=== PATIENT | male | born 1970 | race Caucasian/White ===

== ENCOUNTER 2016-05-03 16:08 | Emergency (ER) | payer BC ==
[2016-05-03 16:16] VITALS: BP 131/86; PULSE 93; O2SAT 98
--- NOTE | 2016-05-03 16:47 | ERPHSYRPT ---
- History of Present Illness Time Seen by Provider: 05/03/16 16:37 Source: patient Patient Subjective Stated Complaint: l5 pain Triage Nursing Assessment: STATES HAS HAD L5 BACK PAIN SINCE YESTERDAY. STATES HE IS SUPPOSED TO HAVE A STIMULATOR BUT NOT SCHEDULED YET. 'IF I CANT GET A NARCOTIC FROM THE SAME JERK THAT WOULDNT GIVE ME ONE THE LAST TIME THEN I MIGHT WELL LEAVE' C/O NONRADIATING LOWER BACK PAIN Physician History: The patient is a 45-year-old male with chronic back pain for 2 years. He is under pain management for chronic back pain for which he takes hydrocortisone 20 mg 3 times a day. Since yesterday his low back pain has flared. He states that he wants to come in to have an injection of Dilaudid. He states he is waiting for up approval by his insurance for a stimulator. He denies pain in his legs. He denies problems with urination or defecation. Timing/Duration: yesterday Method of Injury: unknown Quality: aching Back Pain Location: lumbar spine Severity of Pain-Max: severe Severity of Pain-Current: severe Modifying Factors: Improves With: pain medication Associated Symptoms: denies symptoms Previous symptoms: other (chronic) Allergies/Adverse Reactions: naproxen Adverse Reaction (Verified 05/03/16 16:17) upsets stomach Home Medications: Omeprazole 40 mg PO DAILY 12/10/14 [History] Aspirin 81 gm Chew [Baby Aspirin 81 mg Chew] 81 mg PO DAILY 01/06/15 [ History] Lisinopril [Zestril 40 mg] 40 mg PO DAILY 06/15/15 [History] Gabapentin [Neurontin] 300 mg PO Q4H 04/08/16 [History] Oxycodone HCl Cr 20 mg [Oxycontin 20 MG] 20 mg PO TID 04/08/16 [History] Duloxetine HCl [Cymbalta] 60 mg PO DAILY 05/03/16 [History] Hx Tetanus, Diphtheria Vaccination/Date Given: Yes Hx Influenza Vaccination/Date Given: No Hx Pneumococcal Vaccination/Date Given: No Immunizations Up to Date: Yes - Review of Systems Constitutional: No Fever, No Chills Eyes: No Symptoms Ears, Nose, & Throat: No Symptoms Respiratory: No Cough, No Dyspnea Cardiac: No Chest Pain, No Edema, No Syncope Abdominal/Gastrointestinal: No Abdominal Pain, No Nausea, No Vomiting, No Diarrhea Genitourinary Symptoms: No Dysuria Musculoskeletal: Back Pain Skin: No Rash Neurological: No Dizziness, No Focal Weakness, No Sensory Changes Psychological: No Symptoms Endocrine: No Symptoms Hematologic/Lymphatic: No Symptoms Immunological/Allergic: No Symptoms All Other Systems: Reviewed and Negative - Past Medical History Pertinent Past Medical History: Yes Neurological History: No Pertinent History ENT History: No Pertinent History Cardiac History: Hypertension, Other Respiratory History: No Pertinent History Endocrine Medical History: Other Musculoskeletal History: Osteoarthritis GI Medical History: Colitis, GERD, Hepatitis History: No Pertinent History Psycho-Social History: Anxiety, Depression Male Reproductive Disorders: No Pertinent History Other Medical History: Stenosis of the heart, - Past Surgical History Past Surgical History: Yes Neuro Surgical History: No Pertinent History Cardiac: Cardiac Catheterization Respiratory: No Pertinent History Gastrointestinal: Appendectomy Genitourinary: No Pertinent History Musculoskeletal: No Pertinent History Male Surgical History: No Pertinent History Other Surgical History: TONSILS. steroid back injections-. 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 - Social History Smoking Status: Current every day smoker How long have you smoked: 30 Exposure to second hand smoke: Yes Alcohol Use: Socially Drug Use: none Patient Lives Alone: No Significant Family History: no pertinent family hx - Nursing Vital Signs Temperature: 99.3 F Temperature Source: Oral Pulse Rate: 93 Respiratory Rate: 18 Pain Intensity: 8 - Physical Exam General Appearance: moderate distress Eye Exam: PERRL/EOMI, eyes nml inspection Ears, Nose, Throat Exam: normal ENT inspection Neck Exam: normal inspection, non-tender, supple, full range of motion, No meningismus, No midline tenderness Respiratory Exam: normal breath sounds, lungs clear, No respiratory distress Cardiovascular Exam: regular rate/rhythm, normal heart sounds Gastrointestinal Exam: soft, No tenderness, No mass Rectal Exam: not done Back Exam: decreased range of motion Extremity Exam: normal inspection Neurologic Exam: alert, oriented x 3, cooperative, masticator II-XII nml as tested, normal mood/affect, nml station & gait, sensation nml, No motor deficits Skin Exam: normal color, warm, dry, No rash SpO2 Interpretation: normal SpO2: 98 Oxygen Delivery: Room Air - Progress Progress Note: 05/03/16 16:57 After examination of the patient's back I discussed the options of treatment with the patient. Since the patient is already on hydrocodone 20 mg 3 times a day, I recommended to him that he be given a steroid injection, Toradol injection, and ice applied to the area as needed. I said this would be a 4 pronged approach to pain control without using an increasing strength of a narcotic. I left the room to make the orders and the patient walked out and left the hospital. - Departure Time of Disposition: 16:59 Departure Disposition: AMA Clinical Impression: Left against medical advice Condition: Stable Critical Care Time: No
== END 2016-05-03 16:50 | disposition left against medical advice (07) ==
LOC: ED 16:08
DX: M54.5 Low back pain (principal); I10 Essential (primary) hypertension; Z79.891 Long term (current) use of opiate analgesic; Z79.899 Other long term (current) drug therapy
CPT/HCPCS: 99282

== ENCOUNTER 2016-06-24 16:22 | Emergency (ER) | payer BC ==
[2016-06-24] MEDS ORDERED: TYLENOL 325 MG PO ONE (16:46)
[2016-06-24] MEDS ORDERED: Sodium Chloride 0.9% 1000 ML 1,000 ML IV STA (16:46)
[2016-06-24] MEDS ORDERED: PROVENTIL 2.5 MG/3 ML NEB IH ONE ×2 (16:47→17:00)
[2016-06-24] MEDS ORDERED: solu-MEDROL 125 MG IV ONE (16:47)
--- NOTE | 2016-06-24 16:50 | ERPHSYRPT ---
- History of Present Illness Time Seen by Provider: 06/24/16 16:40 Source: patient Patient Subjective Stated Complaint: COUGH Triage Nursing Assessment: STATES HAS HAD FLU AND HE HAS HAD SWEATS AND UPPER RESP S/S WITH FEVER AND NONPRODUCTIVE COUGH FOR 3 DAYS. DENIES N/V/D. NORMAL URINE/BOWELS.POST LT WHEEZES NOTED Physician History: CC: cough Hx: 45 y/o male patient is a smoker but has no hx of lung disease. His was ill with swab positive influenza last week. He then became ill4 days ago. He has cough, fever, chills. Was better yesterday but the fever has returned with cold chills. No V/D. Normal urination. Hx of borderline sugars. No rash or headache. Timing/Duration: day(s) (4) Cough Quality/Degree: moderate Allergies/Adverse Reactions: No Known Drug Allergies Allergy (Unverified 06/24/16 16:32) Home Medications: Omeprazole 40 mg PO DAILY 12/10/14 [History] Aspirin 81 gm Chew [Baby Aspirin 81 mg Chew] 81 mg PO DAILY 01/06/15 [ History] Lisinopril [Zestril 40 mg] 40 mg PO DAILY 06/15/15 [History] Hx Tetanus, Diphtheria Vaccination/Date Given: Yes Hx Influenza Vaccination/Date Given: No Hx Pneumococcal Vaccination/Date Given: No Immunizations Up to Date: Yes - Review of Systems Constitutional: Fever, Chills, Fatigue, Malaise, Weakness Eyes: No Symptoms Ears, Nose, & Throat: No Symptoms Respiratory: Cough, Wheezing, No Dyspnea Cardiac: No Chest Pain Abdominal/Gastrointestinal: No Abdominal Pain, No Nausea, No Vomiting, No Diarrhea Genitourinary Symptoms: No Dysuria Musculoskeletal: Myalgias, No Back Pain Skin: No Rash Neurological: No Headache All Other Systems: Reviewed and Negative - Past Medical History Pertinent Past Medical History: Yes Neurological History: No Pertinent History ENT History: No Pertinent History Cardiac History: Hypertension, Other Respiratory History: No Pertinent History Endocrine Medical History: Other Musculoskeletal History: Osteoarthritis GI Medical History: Colitis, GERD, Hepatitis History: No Pertinent History Psycho-Social History: Anxiety, Depression Male Reproductive Disorders: No Pertinent History Other Medical History: Stenosis of the heart, - Past Surgical History Past Surgical History: Yes Neuro Surgical History: No Pertinent History Cardiac: Cardiac Catheterization Respiratory: No Pertinent History Gastrointestinal: Appendectomy Genitourinary: No Pertinent History Musculoskeletal: No Pertinent History Male Surgical History: No Pertinent History Other Surgical History: TONSILS. steroid back injections-. 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 - Social History Smoking Status: Current every day smoker How long have you smoked: 30 Exposure to second hand smoke: Yes Alcohol Use: Socially Drug Use: none Patient Lives Alone: No Significant Family History: no pertinent family hx - Nursing Vital Signs Nursing Vital Signs: Initial Vital Signs Temperature 103 F Temperature Source Oral Pulse Rate 90 Respiratory Rate 20 Blood Pressure [Right Arm] 127/65 Pain Intensity 0 - Physical Exam General Appearance: alert Eye Exam: PERRL/EOMI Ears, Nose, Throat Exam: normal ENT inspection, moist mucous membranes Neck Exam: normal inspection, non-tender, supple Respiratory Exam: rhonchi, wheezing, No respiratory distress Cardiovascular Exam: regular rate/rhythm, No murmur Gastrointestinal/Abdomen Exam: soft, No tenderness, No distention, No mass, No guarding Male Genitalia Exam: normal genitalia Back Exam: normal inspection, normal range of motion Extremity Exam: normal inspection, normal range of motion Neurologic Exam: alert, oriented x 3, cooperative Skin Exam: diaphoresis SpO2 Interpretation: normal SpO2: 99 Oxygen Delivery: Room Air - Course Nursing assessment & vital signs reviewed: Yes - Radiology Exams cxr X-ray Interpretation: Reviewed by me (increased markings lower lungs without focal consolidation) Ordered Tests: Active Orders 24 hr Category Date Time Status Clean Catch Urine Specimen STAT Care 06/24/16 16:46 Active IV Insertion STAT Care 06/24/16 16:46 Active CHEST 2 VIEWS (PA AND LAT) Stat Exams 06/24/16 16:46 Taken CBC W DIFF Stat Lab 06/24/16 17:06 Completed CMP Stat Lab 06/24/16 17:06 Completed Lactic Acid Urgent Lab 06/24/16 16:47 Ordered Manual Differential NC Stat Lab 06/24/16 17:06 Completed UA Stat Lab 06/24/16 17:06 Completed Respiratory Nebulizer STAT RT 06/24/16 16:47 Completed Medication Summary Generic Name Dose Route Start Last Admin Trade Name Freq PRN Reason Stop Dose Admin Sodium Chloride 1,000 mls @ 999 mls/hr 06/24/16 16:46 06/24/16 16:57 Sodium Chloride 0.9% 1000 Ml IV 06/24/16 17:46 999 mls/hr .Q1H1M STA Administration Discontinued Medications Generic Name Dose Route Start Last Admin Trade Name Judd PRN Reason Stop Dose Admin Acetaminophen 650 mg 06/24/16 16:46 06/24/16 16:56 Tylenol 325 Mg PO 06/24/16 16:47 650 mg STAT ONE Administration Acetaminophen Confirm 06/24/16 16:53 Tylenol 325 Mg Administered 06/24/16 16:54 Dose 650 mg .ROUTE .STK-MED ONE Albuterol Sulfate 2.5 mg 06/24/16 16:47 06/24/16 17:10 Proventil 2.5 Mg/3 Ml Neb IH 06/24/16 16:48 2.5 mg STAT ONE Administration Albuterol Sulfate Confirm 06/24/16 17:00 Proventil 2.5 Mg/3 Ml Neb Administered 06/24/16 17:01 Dose 2.5 mg IH .STK-MED ONE Sodium Chloride Confirm 06/24/16 16:53 Sodium Chloride 0.9% 1000 Ml Administered 06/24/16 16:54 Dose 1,000 mls @ ud .ROUTE .STK-MED ONE Methylprednisolone Sodium Succinate 125 mg 06/24/16 16:47 06/24/16 16:56 Solu-Medrol 125 Mg IV 06/24/16 16:48 125 mg STAT ONE Administration Methylprednisolone Sodium Succinate Confirm 06/24/16 16:53 Solu-Medrol 125 Mg Administered 06/24/16 16:54 Dose 125 mg .ROUTE .STK-MED ONE Lab/Rad Data: Laboratory Result Diagrams 06/24/16 17:06 06/24/16 17:06 Laboratory Results 06/24/16 06/24/16 06/24/16 Range/Units 17:06 17:06 17:06 WBC 11.9 H (4.0-10.5) K/mm3 RBC 4.68 (4.1-5.6) M/mm3 Hgb 14.4 (12.5-18.0) gm/dl Hct 42.9 (42-50) % MCV 91.7 (78-100) fl MCH 30.8 (26-32) pg MCHC 33.6 (32-36) g/dl RDW 12.8 (11.5-14.0) % Plt Count 276 (150-450) K/mm3 MPV 10.8 H (6-9.5) fl Segmented Neutrophils 60 (36.-66.) % Band Neutrophils 2 (0.0-2.0) % Lymphocytes (Manual) 31 (24-44) % Monocytes (Manual) 3 (0.0-12.0) % Basophils (Manual) 1 (0.0-1.0) % Differential Comment NORMAL Atypical Lymphocytes 3 % Platelet Estimate NORMAL (NORMAL) Sodium 140 (136-145) mEq/L Potassium 4.1 (3.5-5.1) mEq/L Chloride 101 (98-107) mEq/L Carbon Dioxide 27.4 (21-32) mEq/L Anion Gap 15.2 H (5-15) MEQ/L BUN 14 (9-20) mg/dL Creatinine 0.94 (0.55-1.30) mg/dl Estimated GFR > 60 ML/MIN Glucose 111 H (70-110) MG/DL Calcium 9.8 (8.5-10.1) mg/dL Total Bilirubin 0.3 (0.2-1.0) mg/dL AST 17 (15-37) U/L ALT 10 L (12-78) U/L Alkaline Phosphatase 82 (46-116) U/L Serum Total Protein 8.5 H (6.4-8.2) gm/dL Albumin 4.0 (3.4-5.0) g/dL Ur Collection Type CLEAN CATCH Urine Color YELLOW (YELLOW) Urine Appearance CLEAR (CLEAR) Urine pH 5.5 (5-6) Ur Specific [place] 1.025 (1.005-1.025) Urine Protein NEGATIVE (Negative) Urine Glucose (UA) NEGATIVE (NEGATIVE) mg/dL Urine Ketones TRACE (NEGATIVE) Urine Nitrite NEGATIVE (NEGATIVE) Urine Bilirubin SMALL (NEGATIVE) Urine Urobilinogen 0.2 (0-1) mg/dL Urine WBC (Auto) NEGATIVE (NEGATIVE) Urine RBC (Auto) NEGATIVE (0-5) Vic/ul Specimen Received 06/24/16 1700 - Progress Progress Note: 06/24/16 17:36 Neb and steroids given. Advised stop smoking. He has flu exposure. Rx given. Counseled pt/family regarding: lab results, diagnosis, need for follow-up - Departure Time of Disposition: 17:37 Departure Disposition: Home Clinical Impression: Acute asthmatic bronchitis, Smoker, Influenza Condition: Stable Critical Care Time: No Referrals: HANNA CAR MD [Primary Care Provider] - Instructions: Bronchitis, Influenza -- Adult Additional Instructions: Stop smoking. Push oral fluids. Rx doxycycline. Rx albuterol MDI. Rx prednisone. Tylenol if needed for fever or discomfort. Prescriptions: Albuterol Sulfate [Albuterol Sulfate Hfa] 2 puff IH Q4-6HPRN PRN #1 [id number] PRN Reason: cough or wheeze Doxycycline Hyclate [Vibramycin] 1 cap PO BID #20 capsule Prednisone 20 mg [Deltasone 20 mg] 2 tab PO DAILY #10 tablet
[2016-06-24] MEDS ORDERED: TYLENOL 325 MG ONE (16:53)
[2016-06-24] MEDS ORDERED: Sodium Chloride 0.9% 1000 ML 1,000 ML ONE (16:53)
[2016-06-24] MEDS ORDERED: solu-MEDROL 125 MG ONE (16:53)
[2016-06-24 17:09] LABS: Mean Cell Volume 91.7 fl (78-100); Mean Corpuscular Hemoglobin 30.8 pg (26-32); Mean Platelet Volume 10.8 fl (6-9.5); Platelet Count 276 K/mm3 (150-450); Red Blood Count 4.68 M/mm3 (4.1-5.6); Red Cell Distribution Width 12.8 % (11.5-14.0); White Blood Count 11.9 K/mm3 (4.0-10.5)
[2016-06-24 17:13] LABS: Collection Type CLEAN CATCH; Ph 5.5 (5-6)
[2016-06-24 17:14] LABS: COMPLETE URINE MICROSCOPIC? NO
[2016-06-24 17:28] LABS: ALKALINE PHOSPHATASE 82 U/L (46-116); ANION GAP 15.2 MEQ/L (5-15); BILIRUBIN,TOTAL 0.3 mg/dL (0.2-1.0); BLOOD UREA NITROGEN 14 mg/dL (9-20); CHLORIDE 101 mEq/L (98-107); Carbon Dioxide 27.4 mEq/L (21-32); Glucose 111 MG/DL (70-110); Potassium 4.1 mEq/L (3.5-5.1); SGOT/AST 17 U/L (15-37); SGPT/ALT 10 U/L (12-78); SODIUM 140 mEq/L (136-145); Total Protein 8.5 gm/dL (6.4-8.2)
[2016-06-24 17:32] LABS: ATYPICAL LYMPHS 3 %; BAND 2 % (0.0-2.0); Basophil 1 % (0.0-1.0); Total Cells Counted 100
[2016-06-24 17:33] LABS: Platelet Estimate NORMAL (NORMAL)
[2016-06-24 17:39] VITALS: O2SAT 99
[2016-06-24] MEDS ORDERED: Vibramycin 100 MG PO ONE (17:42)
[2016-06-24] MEDS ORDERED: Vibramycin 100 MG ONE (17:46)
[2016-06-24] MEDS ORDERED: Ventolin Hfa MDI IH ONE (17:51)
[2016-06-24] MEDS ORDERED: Ventolin Hfa MDI IH PRN (17:51)
[2016-06-24 18:42] VITALS: BP 129/73; PULSE 82
--- NOTE | 2016-06-24 22:09 | XRAY ---
Indication: Fever and cough. Comparison: March 20, 2016. PA/lateral chest again hyperinflated with scattered calcified granulomas. Query small focus of inferior lingular infiltrate/atelectasis. Remaining heart, lungs, and bony thorax unremarkable.
== END 2016-06-24 18:45 | disposition home or self-care (01) ==
LOC: ED 16:22
DX: J45.909 Unspecified asthma, uncomplicated (principal); F17.200 Nicotine dependence, unspecified, uncomplicated; J11.1 Influenza due to unidentified influenza virus with other respiratory manifestations; R05 Cough; R50.9 Fever, unspecified; I10 Essential (primary) hypertension
CPT/HCPCS: 36000; 36415; 71020; 80053; 81002; 83605; 85025; 94640; 96360; 96374; 99284; J2930; A9270-GY

== ENCOUNTER 2016-06-30 16:00 | Emergency (ER) | payer BC ==
[2016-06-30] MEDS ORDERED: Sodium Chloride 0.9% 1000 ML 1,000 ML ONE (16:41)
[2016-06-30] MEDS ORDERED: Sodium Chloride 0.9% 1000 ML 1,000 ML IV SCH (16:45)
[2016-06-30 16:54] LABS: Mean Cell Volume 91.3 fl (78-100); Platelet Count 397 K/mm3 (150-450); Red Blood Count 4.36 M/mm3 (4.1-5.6); Red Cell Distribution Width 12.8 % (11.5-14.0); White Blood Count 13.5 K/mm3 (4.0-10.5)
--- NOTE | 2016-06-30 16:57 | ERPHSYRPT ---
- History of Present Illness Time Seen by Provider: 06/30/16 16:20 Source: patient Exam Limitations: clinical condition Patient Subjective Stated Complaint: had spinal stimulator put in yesterday. states today surgery site is leaking. Triage Nursing Assessment: ambulated to room without difficulty. skin w/d, color normal, resp easy. [place] without difficulty. denies any h/a, numbness. has clear drainage noted under opsite dressing. air also noted under dressing. Physician History: PATIENT WITH HISTORY OF DEGENERATIVE DISC DISEASE HAD A SPINAL CORD STIMULATOR INSERTION YESTERDAY NOW COMPLAINS OF CLEAR FLUID LEAKING INTO CLEAR BANDAGE. PATIENT DENIES FEVER, HEADACHE OR INCREASING BACK PAIN. Timing/Duration: yesterday Severity: mild Associated Symptoms: other (DENIES HEADACHE, NECK PAIN) Allergies/Adverse Reactions: No Known Drug Allergies Allergy (Verified 06/30/16 16:32) Home Medications: Omeprazole 40 mg PO DAILY 12/10/14 [History] Aspirin 81 gm Chew [Baby Aspirin 81 mg Chew] 81 mg PO DAILY 01/06/15 [ History] Lisinopril [Zestril 40 mg] 40 mg PO DAILY 06/15/15 [History] Hx Tetanus, Diphtheria Vaccination/Date Given: Yes (2015) Hx Influenza Vaccination/Date Given: No Hx Pneumococcal Vaccination/Date Given: No - Review of Systems Constitutional: No Fever, No Chills Eyes: No Symptoms Ears, Nose, & Throat: No Symptoms Respiratory: No Symptoms, No Cough, No Dyspnea Cardiac: No Symptoms, No Chest Pain, No Edema, No Syncope Abdominal/Gastrointestinal: No Abdominal Pain, No Nausea, No Vomiting, No Diarrhea Genitourinary Symptoms: No Symptoms, No Dysuria Musculoskeletal: Other (FLUID DRAINING FROM SPINAL CORD STIMULATOR SITE), No Back Pain, No Neck Pain Skin: No Rash Neurological: No Dizziness, No Focal Weakness, No Sensory Changes Psychological: No Symptoms Endocrine: No Symptoms All Other Systems: Reviewed and Negative - Past Medical History Pertinent Past Medical History: Yes Neurological History: No Pertinent History ENT History: No Pertinent History Cardiac History: Hypertension, Other Respiratory History: No Pertinent History Endocrine Medical History: Other Musculoskeletal History: Osteoarthritis GI Medical History: Colitis, GERD, Hepatitis History: No Pertinent History Psycho-Social History: Anxiety, Depression Male Reproductive Disorders: No Pertinent History Other Medical History: Stenosis of the heart, - Past Surgical History Past Surgical History: Yes Neuro Surgical History: No Pertinent History Cardiac: Cardiac Catheterization Respiratory: No Pertinent History Gastrointestinal: Appendectomy Genitourinary: No Pertinent History Musculoskeletal: No Pertinent History Male Surgical History: No Pertinent History Other Surgical History: TONSILS. steroid back injections-. 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 - Social History Smoking Status: Current every day smoker How long have you smoked: 30 Exposure to second hand smoke: Yes Alcohol Use: Socially Drug Use: none Patient Lives Alone: No Significant Family History: no pertinent family hx - Nursing Vital Signs Nursing Vital Signs: Initial Vital Signs Temperature 98.9 F Temperature Source Oral Pulse Rate 64 Respiratory Rate 20 Blood Pressure [Right Arm] 129/57 Pain Intensity 0 - Physical Exam General Appearance: no apparent distress, alert Eye Exam: PERRL/EOMI, eyes nml inspection Ears, Nose, Throat Exam: normal ENT inspection, TMs normal, pharynx normal, moist mucous membranes Neck Exam: normal inspection, non-tender, supple, full range of motion Respiratory Exam: normal breath sounds, lungs clear, No respiratory distress Cardiovascular Exam: regular rate/rhythm, normal heart sounds, normal peripheral pulses Gastrointestinal/Abdomen Exam: soft, normal bowel sounds, No tenderness, No mass Back Exam: normal range of motion, other (ADHESIVE TRANSPARENT DRESSING OVER T- 8 TO L-5, WITH CLEAR FLUID AT THE L1TO L5 AREA, NO PURULENT DRAINAGE NOTED), No CVA tenderness, No vertebral tenderness Extremity Exam: normal inspection, normal range of motion, pelvis stable Neurologic Exam: alert, oriented x 3, cooperative, normal mood/affect, nml cerebellar function, nml station & gait, sensation nml, No motor deficits Skin Exam: normal color, warm, dry, No rash Lymphatic Exam: No adenopathy SpO2 Interpretation: normal SpO2: 96 Oxygen Delivery: Room Air Ordered Tests: Active Orders 24 hr Category Date Time Status Binder,Apply ONCE Care 06/30/16 18:25 Ordered IV Insertion STAT Care 06/30/16 16:31 Active BLOOD CULTURE Stat Lab 06/30/16 16:52 Received CBC W DIFF Stat Lab 06/30/16 16:35 Completed CULTURE,WOUND Stat Lab 06/30/16 16:35 Received Manual Differential NC Stat Lab 06/30/16 16:35 Completed Medication Summary Generic Name Dose Route Start Last Admin Trade Name Freq PRN Reason Stop Dose Admin Sodium Chloride 1,000 mls @ 100 mls/hr 06/30/16 16:45 06/30/16 16:46 Sodium Chloride 0.9% 1000 Ml IV 07/30/16 16:44 100 mls/hr .Q10H MUKUL Administration Discontinued Medications Generic Name Dose Route Start Last Admin Trade Name Judd PRN Reason Stop Dose Admin Sodium Chloride Confirm 06/30/16 16:41 Sodium Chloride 0.9% 1000 Ml Administered 06/30/16 16:42 Dose 1,000 mls @ ud .ROUTE .STK-MED ONE Lab/Rad Data: Laboratory Result Diagrams 06/30/16 16:35 Laboratory Results 06/30/16 Range/Units 16:35 WBC 13.5 H (4.0-10.5) K/mm3 RBC 4.36 (4.1-5.6) M/mm3 Hgb 13.5 (12.5-18.0) gm/dl Hct 39.8 L (42-50) % MCV 91.3 (78-100) fl MCH 31.0 (26-32) pg MCHC 33.9 (32-36) g/dl RDW 12.8 (11.5-14.0) % Plt Count 397 (150-450) K/mm3 MPV 10.0 H (6-9.5) fl Segmented Neutrophils 55 (36.-66.) % Band Neutrophils 4 H (0.0-2.0) % Lymphocytes (Manual) 33 (24-44) % Monocytes (Manual) 3 (0.0-12.0) % Eosinophils (Manual) 4 H (0.00-3.0) % Metamyelocytes 1 % Differential Comment ABNORMAL Platelet Estimate NORMAL (NORMAL) Anisocytosis 1+ - Progress Progress Note: 06/30/16 18:[address] IVEY IN TO EVALUATE PATIENT WITH RECOMMENDATION OF ABDOMINAL BINDER , PATIENT TAKING ANTIBIOTICS KEFLEX Discussed with Dr.: Other (DISCUSSED WITH DR JEAN CORCORAN PAIN SPECIALIST AT 1645 , WHO WILL COME TO THE EMERGNCY ROOM FOR EVAUATION OF PATIENT) Counseled pt/family regarding: lab results, diagnosis, need for follow-up - Departure Time of Disposition: 18:35 Departure Disposition: Home Clinical Impression: SPINAL CORD STIMULATOR SITE DRAINAGE Condition: Stable Critical Care Time: No Additional Instructions: MAINTAIN ABDOMINAL BINDER UNTIL EVALUATED BY DR IVEY IN OFFICE IN 3 DAYS. CONTINUE ALL CURRENT MEDICATIONS.
[2016-06-30 17:19] LABS: BAND 4 % (0.0-2.0); Eosinophil 4 % (0.00-3.0); Metamyelocyte 1 %; Total Cells Counted 100
[2016-06-30 17:22] LABS: ANISOCYTOSIS 1+; Platelet Estimate NORMAL (NORMAL)
[2016-06-30 18:39] VITALS: BP 124/68; PULSE 60; O2SAT 97
== END 2016-06-30 18:38 | disposition home or self-care (01) ==
LOC: ED 16:00
DX: T81.31XA Disruption of external operation (surgical) wound, not elsewhere classified, initial encounter (principal)
CPT/HCPCS: 36000; 36415; 85025; 87040; 87070; 96360; 99284; L0625

== ENCOUNTER 2016-10-16 22:26 | Emergency (ER) | payer BC ==
--- NOTE | 2016-10-16 23:19 | ERPHSYRPT ---
- History of Present Illness Time Seen by Provider: 10/16/16 23:10 Source: patient Exam Limitations: no limitations Patient Subjective Stated Complaint: Pt sts right lower jaw pain for a couple of days worsening in nature. Sts he googled it and thinks that it is a swollen gland. Triage Nursing Assessment: Pt alert, oriented, answers all questions appropriately. Skin p/w/d, resps non-labored. Pt ambulatory to tx room, steady gait noted. Swelling noted rt lower jaw along jaw line. Inside of mouth the oral and buccal mucosa appears reddened and swollen. Physician History: FOR THE PAST 3 DAYS PT HAS HAD A RIGHT JAW LUMP WHICH IS TENDER. PT ALSO HAS HAD A HEADACHE 2 DAYS AGO ONLY AND DIARRHEA FOR THE PAST 2 DAYS. PT DENIES FEVER , CHEST PAIN, VOMITING. Allergies/Adverse Reactions: No Known Drug Allergies Allergy (Verified 10/16/16 22:35) Home Medications: Omeprazole 40 mg PO DAILY 12/10/14 [History] Aspirin 81 gm Chew [Baby Aspirin 81 mg Chew] 81 mg PO DAILY 01/06/15 [ History] Lisinopril [Zestril 40 mg] 40 mg PO DAILY 06/15/15 [History] Hydrocodone Bit/Acetaminophen [Hydrocodon-Acetaminophn 10-325] 1 each PO BID 06/30 [History] Hx Tetanus, Diphtheria Vaccination/Date Given: Yes (less than 5 years) Hx Influenza Vaccination/Date Given: No Hx Pneumococcal Vaccination/Date Given: No Immunizations Up to Date: No - Review of Systems Constitutional: No Fever Ears, Nose, & Throat: Other (JAW LUMP) Cardiac: No Chest Pain Abdominal/Gastrointestinal: Diarrhea, No Vomiting Neurological: Headache All Other Systems: Reviewed and Negative - Past Medical History Pertinent Past Medical History: Yes Neurological History: No Pertinent History ENT History: No Pertinent History Cardiac History: Hypertension, Other Respiratory History: No Pertinent History Endocrine Medical History: Other Musculoskeletal History: Osteoarthritis GI Medical History: Colitis, GERD, Hepatitis History: No Pertinent History Psycho-Social History: Anxiety, Depression Male Reproductive Disorders: No Pertinent History Other Medical History: Stenosis of the heart, - Past Surgical History Past Surgical History: Yes Neuro Surgical History: No Pertinent History Cardiac: Cardiac Catheterization Respiratory: No Pertinent History Gastrointestinal: Appendectomy Genitourinary: No Pertinent History Musculoskeletal: No Pertinent History Male Surgical History: No Pertinent History Other Surgical History: TONSILS. steroid back injections-. 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 - Social History Smoking Status: Current every day smoker How long have you smoked: 30 years Exposure to second hand smoke: No Alcohol Use: Socially Drug Use: none Patient Lives Alone: No Significant Family History: no pertinent family hx - Nursing Vital Signs Nursing Vital Signs: Initial Vital Signs Temperature 99.2 F Temperature Source Oral Pulse Rate 82 Respiratory Rate 16 Blood Pressure [Right Arm] 165/103 Pain Intensity 2 - Physical Exam General Appearance: alert Eye Exam: PERRL/EOMI Ears, Nose, Throat Exam: pharynx normal, moist mucous membranes, other (TENDER NON-MOVEABLE 3 CM NODULE OVER THE MID RIGHT JAW. ) Neck Exam: full range of motion Respiratory Exam: normal breath sounds Cardiovascular Exam: normal heart sounds Gastrointestinal/Abdomen Exam: soft, normal bowel sounds Back Exam: normal range of motion Extremity Exam: normal inspection, No pedal edema Neurologic Exam: alert, cooperative Skin Exam: warm, dry SpO2 Interpretation: normal SpO2: 99 Oxygen Delivery: Room Air - Course Nursing assessment & vital signs reviewed: Yes - CT Exams Maxillofacial Bones CT Interpretation: Tele-radiologist Report (FINDINGS SUGGEST RIGHT SUBMANDIBULAR LYMPHADENITIS.) Ordered Tests: Active Orders 24 hr Category Date Time Status FACIAL BONES WO CONTRAST [CT] Stat Exams 10/16/16 23:18 Taken - Departure Time of Disposition: 00:19 Departure Disposition: Home Clinical Impression: SUBMANDIBULAR LYMPHADENITIS Condition: Stable Critical Care Time: No Instructions: Lymphadenopathy Additional Instructions: FOLLOW UP WITH PRIVATE DOCTOR TOMORROW. Prescriptions: Cephalexin Monohydrate [Keflex] 500 mg PO TID #30 capsule
[2016-10-17] MEDS ORDERED: Rocephin 1000 MG INJ IM ONE (00:19)
[2016-10-17] MEDS ORDERED: Rocephin 1000 MG INJ ONE (00:21)
[2016-10-17] MEDS ORDERED: XYLOCAINE 1% HCL 20 ML MDV ONE (00:21)
[2016-10-17 00:48] VITALS: BP 164/108; PULSE 80; O2SAT 98
--- NOTE | 2016-10-17 08:55 | XRAY ---
Indication: Right mandible mass/tenderness/pain. Multiple contiguous axial images obtained through the facial bones without contrast. Comparison: None There are multiple bilateral dental amalgams producing beam artifact limiting these levels. There are a few prominent right submandibular lymph nodes with stranding favoring lymphadenitis. Largest measures 1.3 x 0.7 cm. Smaller scattered cervical nodes seen bilaterally, none pathologically enlarged. Parotid and submandibular glands are asymmetric. Heavy carotid arteriosclerotic calcifications, right greater than left. No acute fracture or suspicious bony lesions. Orbits including roof, madrigal, and floors intact. Visualized cervical spine intact. Remaining visualized noncontrasted soft tissues including base of the brain unremarkable. Visualized paranasal sinuses and mastoid air cells are clear. Impression: 1. Right submandibular lymphadenitis. 2. Heavy carotid calcifications bilaterally. Outpatient ultrasound may yield further information if clinically warranted. Comment: Preliminary interpretation was made by [facility]. No discrepancy. CTDI 59.47
== END 2016-10-17 00:48 | disposition home or self-care (01) ==
LOC: ED 22:26
DX: I88.8 Other nonspecific lymphadenitis (principal); R19.7 Diarrhea, unspecified; R51 Headache
CPT/HCPCS: 70486; 96372; 99284; J0696

== ENCOUNTER 2016-12-19 10:19 | Emergency (ER) | payer BC ==
[2016-12-19] MEDS ORDERED: TORAdol 30 mg Injection IM ONE (10:37)
[2016-12-19] MEDS ORDERED: TORAdol 30 mg Injection ONE (10:44)
--- NOTE | 2016-12-19 10:46 | ERPHSYRPT ---
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 He had a spinal stimulator placed by Dr Patel 3 weeks ago and has had no relief in his symptoms since that time. He was seen and has been taking Ruston 10/325 bid, he admits to running out on Sunday due to taking an extra pill on a couple of days after the stimulator was placed due to increased pain. He has no fever, chills. no numbness, tingling, weakness or radiation of pain down the legs. 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 Allergies/Adverse Reactions: No Known Drug Allergies Allergy (Verified 12/19/16 10:29) Home Medications: Omeprazole 40 mg PO DAILY 12/10/14 [History] Aspirin 81 gm Chew [Baby Aspirin 81 mg Chew] 81 mg PO DAILY 01/06/15 [ History] Lisinopril [Zestril 40 mg] 40 mg PO DAILY 06/15/15 [History] Hydrocodone Bit/Acetaminophen [Hydrocodon-Acetaminophn 10-325] 1 each PO BID 06/30 [History] Hx Tetanus, Diphtheria Vaccination/Date Given: Yes Hx Influenza Vaccination/Date Given: No Hx Pneumococcal Vaccination/Date Given: No Immunizations Up to Date: Yes - Review of Systems Constitutional: No Fever, No Chills Respiratory: No Cough, No Dyspnea Cardiac: No Chest Pain, No Edema, No Syncope Abdominal/Gastrointestinal: No Abdominal Pain, No Nausea, No Vomiting, No Diarrhea Musculoskeletal: Back Pain Skin: No Rash Neurological: No Dizziness, No Focal Weakness, No Sensory Changes All Other Systems: Reviewed and Negative - Past Medical History Pertinent Past Medical History: Yes Neurological History: No Pertinent History ENT History: No Pertinent History Cardiac History: Hypertension, Other Respiratory History: No Pertinent History Endocrine Medical History: Other Musculoskeletal History: Osteoarthritis GI Medical History: Colitis, GERD, Hepatitis History: No Pertinent History Psycho-Social History: Anxiety, Depression Male Reproductive Disorders: No Pertinent History Other Medical History: Stenosis of the heart, - Past Surgical History Past Surgical History: Yes Neuro Surgical History: No Pertinent History Cardiac: Cardiac Catheterization Respiratory: No Pertinent History Gastrointestinal: Appendectomy Genitourinary: No Pertinent History Musculoskeletal: Orthopedic Surgery Male Surgical History: No Pertinent History Other Surgical History: TONSILS. steroid back injections-. 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 - Social History Smoking Status: Current every day smoker How long have you smoked: 30 years Exposure to second hand smoke: No Alcohol Use: Socially Drug Use: none Patient Lives Alone: No Significant Family History: no pertinent family hx - Nursing Vital Signs Nursing Vital Signs: Initial Vital Signs Temperature 98.9 F 12/19/16 10:25 Pulse Rate 100 H 12/19/16 10:25 Respiratory Rate 18 12/19/16 10:25 Blood Pressure 140/84 12/19/16 10:25 O2 Sat by Pulse Oximetry 99 12/19/16 10:25 Pain Scale Pain Intensity 8 - Physical Exam General Appearance: no apparent distress, alert Respiratory Exam: normal breath sounds, lungs clear, No respiratory distress Cardiovascular Exam: regular rate/rhythm, normal heart sounds Gastrointestinal Exam: soft, No tenderness, No mass Back Exam: normal inspection, decreased range of motion, other (well healed surgical scars horizonatal x 2 on right lower back), No normal range of motion, No muscle spasm, No point tenderness Extremity Exam: normal inspection, normal range of motion, No calf tenderness, No pedal edema Neurologic Exam: alert, oriented x 3, cooperative, nutrition instructor II-XII nml as tested, normal mood/affect, nml station & gait, sensation nml, No motor deficits Skin Exam: normal color, warm, dry, No rash SpO2 Interpretation: normal SpO2: 99 Oxygen Delivery: Room Air Ordered Tests: Medication Summary Discontinued Medications Generic Name Dose Route Start Last Admin Trade Name Freq PRN Reason Stop Dose Admin Ketorolac Tromethamine 30 mg 12/19/16 10:37 Toradol 30 Mg Injection IM 12/19/16 10:38 STAT ONE - Progress Progress Note: 12/19/16 10:42 MRI reviewed from 02/2016 that showed multilevel disc bulging at L3/4 and mild nerve impingement at L5/S1 level. [facility] reviewed, patient filled #[id number] Ruston 10/ 325 on 11/20/16, discussed that meds need to be refilled through my office as his PCP and not in the ER. will give toradol and rx for naproxen. refill will be addressed through office practice at [facility] and will keep f/u appointment with me in 3 days as scheduled. - Departure Time of Disposition: 10:46 Departure Disposition: Home Clinical Impression: Low back pain, Bulging of lumbar intervertebral disc Condition: Stable Critical Care Time: No Referrals: HANNA CAR MD [Primary Care Provider] - Prescriptions: Naproxen 500 mg PO BID PRN #20 tablet
[2016-12-19 10:53] VITALS: BP 124/66; PULSE 93; O2SAT 97
== END 2016-12-19 10:52 | disposition home or self-care (01) ==
LOC: ED 10:19
DX: M54.5 Low back pain (principal); M51.26 Other intervertebral disc displacement, lumbar region; Z98.890 Other specified postprocedural states
CPT/HCPCS: 96372; 99284; J1885

== ENCOUNTER 2017-07-23 15:25 | Emergency (ER) | payer BC ==
[2017-07-23] MEDS ORDERED: NITRO-BID 2% UD PACKETS TOP ONE (16:01)
[2017-07-23] MEDS ORDERED: PROVENTIL 2.5 MG/3 ML NEB IH ONE ×2 (16:02→16:26)
[2017-07-23 16:10] LABS: BASOPHIL % 0.3 % (0.0-0.4); Basophil (Absolute #) 0.03 (0-0.4); Eosinophil % 2.4 % (0.00-5.0); Eosinophil (Absolute #) 0.24 (0-0.5); Granulocyte Absolute (ANC) 6.04 (1.4-6.9); Granulocytes % 60.2 % (36.0-66.0); Hematocrit 38.9 % (42-50); Hemoglobin 13.4 gm/dl (12.5-18.0); Lymphocyte (Absolute #) 3.19 (1.0-4.6); Lymphocytes % 31.8 % (24.0-44.0); Mean Cell Volume 91.1 fl (78-100); Mean Corpuscular Hemoglobin 31.4 pg (26-32); Mean Corpuscular Hgb Concent. 34.4 g/dl (32-36); Mean Platelet Volume 10.5 fl (6-9.5); Monocyte (Absolute #) 0.53 (0.0-1.3); Monocytes % 5.3 % (0.0-12.0); Platelet Count 242 K/mm3 (150-450); Red Blood Count 4.27 M/mm3 (4.1-5.6)
[2017-07-23 16:25] LABS: ALBUMIN 4.8 g/dL (3.5-5.0); ALKALINE PHOSPHATASE 69 U/L (38-126); BLOOD UREA NITROGEN 16 mg/dL (9-20); CHLORIDE 104 mmol/L (98-107); Calcium 9.7 mg/dL (8.4-10.2); Carbon Dioxide 22 mmol/L (22-30); Creatinine 1 0.97 mg/dL (0.66-1.25); Glucose 132 mg/dL (74-106); SGOT/AST 56 U/L (17-59); SGPT/ALT 29 U/L (0-50); SODIUM 140 mmol/L (137-145); Total Protein 7.8 g/dL (6.3-8.2)
--- NOTE | 2017-07-23 16:26 | XRAY ---
Indication: Chest pain. Comparison: June 24, 2016. Portable chest again demonstrates normal heart and lungs with incidental mediastinal/pulmonary calcified granulomas. Bony thorax intact with new spinal stimulator leads terminating T7.
[2017-07-23] MEDS ORDERED: NITRO-BID 2% UD PACKETS ONE (17:22)
[2017-07-23] MEDS ORDERED: Nicoderm CQ 21 MG TOP SCH (18:30)
[2017-07-23 18:51] VITALS: BP 101/70; PULSE 92; O2SAT 97
[2017-07-23] MEDS ORDERED: Nicoderm CQ 21 MG ONE (18:52)
--- NOTE | 2017-07-23 19:19 | ERPHSYRPT ---
- History of Present Illness Time Seen by Provider: 07/23/17 15:55 Historian: patient Patient Subjective Stated Complaint: pt co sob today, with dry cough, has burning senation to chest, pt states " lung area" worse with deep breath . no fever Triage Nursing Assessment: pt alert, resp easy , chest clear, dry cough , no edema Physician History: CC: chest pain Hx: 46 y/o patient of Dr Car. He has remote hx of vascular disease on cath several years ago. Smoker. Takes lisinopril, chol pill, and asa. Took 325mg asa this AM. He has had burning in the left chest since this AM. Worse when working. He felt like some toruble breathing. Some cough. Pain was worse with vigorous work. Aspirin Treatment Today: 325 mg x 1, provided at home Allergies/Adverse Reactions: No Known Drug Allergies Allergy (Verified 07/23/17 15:38) Home Medications: Omeprazole 40 mg PO DAILY 12/10/14 [History] Aspirin 81 gm Chew [Baby Aspirin 81 mg Chew] 81 mg PO DAILY 01/06/15 [ History] Lisinopril [Zestril 40 mg] 40 mg PO DAILY 06/15/15 [History] Hydrocodone Bit/Acetaminophen [Hydrocodon-Acetaminophn 10-325] 1 each PO BID 06/30 [History] Atorvastatin Calcium 20 mg DAILY 07/23/17 [History] Hx Tetanus, Diphtheria Vaccination/Date Given: Yes Hx Influenza Vaccination/Date Given: Yes Hx Pneumococcal Vaccination/Date Given: No Immunizations Up to Date: Yes - Review of Systems Constitutional: Malaise, No Fever, No Chills Eyes: No Symptoms Ears, Nose, & Throat: No Symptoms Respiratory: No Cough Cardiac: Chest Pain (burning left upper chest), No Edema Abdominal/Gastrointestinal: No Nausea, No Vomiting Musculoskeletal: No Back Pain Skin: No Rash Neurological: No Headache All Other Systems: Reviewed and Negative - Past Medical History Pertinent Past Medical History: Yes Neurological History: No Pertinent History ENT History: No Pertinent History Cardiac History: High Cholesterol, Hypertension, Other Respiratory History: No Pertinent History Endocrine Medical History: Other Musculoskeletal History: Osteoarthritis GI Medical History: Colitis, GERD, Hepatitis History: No Pertinent History Psycho-Social History: Anxiety, Depression Male Reproductive Disorders: No Pertinent History Other Medical History: Stenosis of the heart,states hes hepatitis treatment and is hep free - Past Surgical History Past Surgical History: Yes Neuro Surgical History: No Pertinent History Cardiac: Cardiac Catheterization Respiratory: No Pertinent History Gastrointestinal: Appendectomy Genitourinary: No Pertinent History Musculoskeletal: Orthopedic Surgery Male Surgical History: No Pertinent History Other Surgical History: TONSILS. steroid back injections-. 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 - Social History Smoking Status: Current every day smoker How long have you smoked: 30 years Exposure to second hand smoke: Yes Alcohol Use: Socially Drug Use: none Patient Lives Alone: No Significant Family History: no pertinent family hx - Nursing Vital Signs Nursing Vital Signs: Initial Vital Signs Temperature 97.2 F 07/23/17 15:32 Pulse Rate 99 H 07/23/17 15:32 Respiratory Rate 16 07/23/17 15:32 Blood Pressure 113/67 07/23/17 15:32 O2 Sat by Pulse Oximetry 98 07/23/17 15:32 Pain Scale Pain Intensity 4 - Physical Exam General Appearance: alert Eye Exam: PERRL/EOMI Ears, Nose, Throat Exam: normal ENT inspection, moist mucous membranes Neck Exam: normal inspection, non-tender, supple Respiratory Exam: wheezing (improved with neb) Cardiovascular Exam: regular rate/rhythm, No murmur Gastrointestinal/Abdomen Exam: soft, No tenderness, No distention Back Exam: normal inspection Extremity Exam: normal inspection, normal range of motion, No calf tenderness, No pedal edema Neurologic Exam: alert, oriented x 3, cooperative, sensation nml, No motor deficits Skin Exam: warm, dry, No rash SpO2 Interpretation: normal SpO2: 97 Oxygen Delivery: Room Air - Course Nursing assessment & vital signs reviewed: Yes EKG Interpreted by Me: RATE (71), Sinus Rhythm, NORMAL AXIS, NORMAL INTERVALS ( QTc 398), Q-wave (septal unchanged from prior), NORMAL ST-T Ordered Tests: Active Orders 24 hr Category Date Time Status Chaperon STAT Care 07/23/17 16:02 Active EKG-ER Only STAT Care 07/23/17 16:01 Active IV Insertion STAT Care 07/23/17 16:01 Active Pulse Oximetry (ED) STAT Care 07/23/17 16:01 Active CHEST 1 VIEW (PORTABLE) Stat Exams 07/23/17 16:02 Completed CBC W DIFF Stat Lab 07/23/17 15:40 Completed CMP Stat Lab 07/23/17 15:40 Completed TROPONIN Q3H Lab 07/23/17 16:15 Completed TROPONIN Q3H Lab 07/23/17 19:13 Completed TROPONIN Q3H Lab 07/23/17 22:15 Ordered TROPONIN Q3H Lab 07/24/17 01:15 Ordered TROPONIN Q3H Lab 07/24/17 04:15 Ordered Respiratory Nebulizer STAT RT 07/23/17 16:02 Completed Medication Summary Generic Name Dose Route Start Last Admin Trade Name Freq PRN Reason Stop Dose Admin Nicotine 21 mg 07/23/17 18:30 07/23/17 19:02 Nicoderm Cq 21 Mg TOP 08/22/17 18:29 21 mg Q24H MUKUL Administration Discontinued Medications Generic Name Dose Route Start Last Admin Trade Name Freq PRN Reason Stop Dose Admin Albuterol Sulfate 2.5 mg 07/23/17 16:02 07/23/17 16:28 Proventil 2.5 Mg/3 Ml Neb IH 07/23/17 16:03 2.5 mg STAT ONE Administration Albuterol Sulfate Confirm 07/23/17 16:26 Proventil 2.5 Mg/3 Ml Neb Administered 07/23/17 16:27 Dose 2.5 mg IH .STK-MED ONE Nitroglycerin 1 gm 07/23/17 16:01 07/23/17 17:25 Nitro-Bid 2% Ud Packets TOP 07/23/17 16:02 1 gm STAT ONE Administration Nitroglycerin Confirm 07/23/17 17:22 Nitro-Bid 2% Ud Packets Administered 07/23/17 17:23 Dose 1 gm .ROUTE .STK-MED ONE Lab/Rad Data: Laboratory Result Diagrams 07/23/17 15:40 07/23/17 15:40 Laboratory Results 07/23/17 07/23/17 07/23/17 Range/Units 19:13 16:15 15:40 WBC (4.0-10.5) K/mm3 RBC (4.1-5.6) M/mm3 Hgb (12.5-18.0) gm/dl Hct (42-50) % MCV (78-100) fl MCH (26-32) pg MCHC (32-36) g/dl RDW (11.5-14.0) % Plt Count (150-450) K/mm3 MPV (6-9.5) fl Gran % (36.0-66.0) % Eos # (Auto) (0-0.5) Absolute Lymphs (auto) (1.0-4.6) Absolute Monos (auto) (0.0-1.3) Lymphocytes % (24.0-44.0) % Monocytes % (0.0-12.0) % Eosinophils % (0.00-5.0) % Basophils % (0.0-0.4) % Absolute Granulocytes (1.4-6.9) Basophils # (0-0.4) Sodium 140 (137-145) mmol/L Potassium 4.0 (3.5-5.1) mmol/L Chloride 104 (98-107) mmol/L Carbon Dioxide 22 (22-30) mmol/L Anion Gap 18.0 H (5-15) MEQ/L BUN 16 (9-20) mg/dL Creatinine 0.97 (0.66-1.25) mg/dL Estimated GFR > 60.0 ML/MIN Glucose 132 H (74-106) mg/dL Calcium 9.7 (8.4-10.2) mg/dL Total Bilirubin 0.30 (0.2-1.3) mg/dL AST 56 (17-59) U/L ALT 29 (0-50) U/L Alkaline Phosphatase 69 (38-126) U/L Troponin I < 0.012 < 0.012 (0.000-0.034) ng/mL Serum Total Protein 7.8 (6.3-8.2) g/dL Albumin 4.8 (3.5-5.0) g/dL 07/23/17 Range/Units 15:40 WBC 10.0 (4.0-10.5) K/mm3 RBC 4.27 (4.1-5.6) M/mm3 Hgb 13.4 (12.5-18.0) gm/dl Hct 38.9 L (42-50) % MCV 91.1 (78-100) fl MCH 31.4 (26-32) pg MCHC 34.4 (32-36) g/dl RDW 13.0 (11.5-14.0) % Plt Count 242 (150-450) K/mm3 MPV 10.5 H (6-9.5) fl Gran % 60.2 (36.0-66.0) % Eos # (Auto) 0.24 (0-0.5) Absolute Lymphs (auto) 3.19 (1.0-4.6) Absolute Monos (auto) 0.53 (0.0-1.3) Lymphocytes % 31.8 (24.0-44.0) % Monocytes % 5.3 (0.0-12.0) % Eosinophils % 2.4 (0.00-5.0) % Basophils % 0.3 (0.0-0.4) % Absolute Granulocytes 6.04 (1.4-6.9) Basophils # 0.03 (0-0.4) Sodium (137-145) mmol/L Potassium (3.5-5.1) mmol/L Chloride (98-107) mmol/L Carbon Dioxide (22-30) mmol/L Anion Gap (5-15) MEQ/L BUN (9-20) mg/dL Creatinine (0.66-1.25) mg/dL Estimated GFR ML/MIN Glucose (74-106) mg/dL Calcium (8.4-10.2) mg/dL Total Bilirubin (0.2-1.3) mg/dL AST (17-59) U/L ALT (0-50) U/L Alkaline Phosphatase (38-126) U/L Troponin I (0.000-0.034) ng/mL Serum Total Protein (6.3-8.2) g/dL Albumin (3.5-5.0) g/dL - Progress Progress Note: 07/23/17 19:17 CXR: Portable chest again demonstrates normal heart and lungs with incidental mediastinal/pulmonary calcified granulomas. Bony thorax intact with new spinal stimulator leads terminating T7. Patient was pain free here. Nicotine patch given at patient request. Called Dr Car who knows pt well and he advised repeat troponin which haqs been drawn and is pending. Pt was informed of plan by nurses. He left department. Unsure if to smoke or leave. He left without instructions. 07/23/17 19:48 REpeat troponin negative. Pt did not retur to ER. Counseled pt/family regarding: lab results, diagnosis, need for follow-up, rad results, smoking cessation - Departure Time of Disposition: 19:19 Departure Disposition: Home (eloped prior to test result and writen instructions ) Clinical Impression: Chest pain, Smoker Condition: Stable Critical Care Time: No Referrals: HANNA CAR MD [Primary Care Provider] - Instructions: Chest Pain (DC), Quitting Smoking Additional Instructions: Follow up with Dr Car.
== END 2017-07-23 19:15 | disposition left against medical advice (07) ==
LOC: ED 15:25
DX: R07.9 Chest pain, unspecified (principal); Z79.82 Long term (current) use of aspirin; Z79.899 Other long term (current) drug therapy; F17.200 Nicotine dependence, unspecified, uncomplicated
CPT/HCPCS: 36000; 36415; 71045; 80053; 84484; 85025; 93005; 93041; 94150; 94640; 99284; A9270-GY

== ENCOUNTER 2017-09-13 18:03 | Emergency (ER) | payer BC ==
[2017-09-13] MEDS ORDERED: TORAdol 30 mg Injection IM ONE (18:22)
[2017-09-13] MEDS ORDERED: Norflex 60 MG/2 ML IM ONE (18:23)
[2017-09-13] MEDS ORDERED: TORAdol 30 mg Injection ONE (18:28)
[2017-09-13] MEDS ORDERED: Norflex 60 MG/2 ML ONE (18:28)
--- NOTE | 2017-09-13 18:28 | ERPHSYRPT ---
- History of Present Illness Time Seen by Provider: 09/13/17 18:18 Source: patient Exam Limitations: clinical condition Patient Subjective Stated Complaint: Back Pain x2 days, hx of complaint. Triage Nursing Assessment: Pt presents to the ED with complaints of back pain, hx of complaint. Pt states stimulator was placed last year to help with pain. Pt states pain is worse with movement. Denies known injury. No distress noted, skin PWD. Physician History: PATIENT WITH A HISTORY OF CHRONIC LOW BACK PAIN ,INSERTION OF LUMBAR SPINAL STIMULATOR 12/2016, WHILE AT WORK COMPLAINS OF INCREASING LOW BACK PAIN X 2 DAYS. DENIES A HISTORY OF TRAUMA, FALL, LOSS OF BLADDER OR BOWEL FUNCTION. Timing/Duration: day(s) Method of Injury: unknown Quality: sharp Back Pain Location: lumbar spine Back Pain Radiation: buttocks Severity of Pain-Max: moderate Severity of Pain-Current: moderate Modifying Factors: Improves With: movement Associated Symptoms: muscle spasms Previous symptoms: same symptoms as today Allergies/Adverse Reactions: No Known Drug Allergies Allergy (Verified 07/23/17 15:38) Home Medications: Omeprazole 40 mg PO DAILY 12/10/14 [History] Aspirin 81 gm Chew [Baby Aspirin 81 mg Chew] 81 mg PO DAILY 01/06/15 [ History] Lisinopril [Zestril 40 mg] 40 mg PO DAILY 06/15/15 [History] Atorvastatin Calcium 20 mg DAILY 07/23/17 [History] Gabapentin [Gabapentin] 600 mg PO TID 09/13/17 [History] Hx Tetanus, Diphtheria Vaccination/Date Given: Yes Hx Influenza Vaccination/Date Given: Yes Hx Pneumococcal Vaccination/Date Given: No Immunizations Up to Date: Yes - Past Medical History Pertinent Past Medical History: Yes Neurological History: No Pertinent History ENT History: No Pertinent History Cardiac History: High Cholesterol, Hypertension, Other Respiratory History: No Pertinent History Endocrine Medical History: Other Musculoskeletal History: Osteoarthritis GI Medical History: Colitis, GERD, Hepatitis History: No Pertinent History Psycho-Social History: Anxiety, Depression Male Reproductive Disorders: No Pertinent History Other Medical History: Stenosis of the heart,states hes hepatitis treatment and is hep free - Past Surgical History Past Surgical History: Yes Neuro Surgical History: No Pertinent History Cardiac: Cardiac Catheterization Respiratory: No Pertinent History Gastrointestinal: Appendectomy Genitourinary: No Pertinent History Musculoskeletal: Orthopedic Surgery Male Surgical History: No Pertinent History Other Surgical History: TONSILS. steroid back injections-. 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 - Social History Smoking Status: Current every day smoker How long have you smoked: 30 years Exposure to second hand smoke: Yes Alcohol Use: Socially Drug Use: none Patient Lives Alone: No Significant Family History: no pertinent family hx - Nursing Vital Signs Nursing Vital Signs: Initial Vital Signs Temperature 99.2 F 09/13/17 18:08 Pulse Rate 99 H 09/13/17 18:08 Respiratory Rate 15 09/13/17 18:08 Blood Pressure 128/94 09/13/17 18:08 O2 Sat by Pulse Oximetry 99 09/13/17 18:08 Pain Scale Pain Intensity [Back Pain] 9 Pain Intensity 9 - Physical Exam SpO2: 99 Oxygen Delivery: Room Air - Radiology Exams L-Spine X-ray Interpretation: Interpreted by me (MINIMAL VERTEBRAL BODY SPURRING, NO EVIDENCE OF FRACTURE OR SUBLUXATION, SPINAL DEVICE, STIMULATOR NOTED) Ordered Tests: Active Orders 24 hr Category Date Time Status LUMBAR LIMITED (2 OR 3 VIEWS) Stat Exams 09/13/17 18:29 Taken Medication Summary Discontinued Medications Generic Name Dose Route Start Last Admin Trade Name Sawq PRN Reason Stop Dose Admin Ketorolac Tromethamine 60 mg 09/13/17 18:22 09/13/17 18:29 Toradol 30 Mg Injection IM 09/13/17 18:23 60 mg STAT ONE Administration Ketorolac Tromethamine Confirm 09/13/17 18:28 Toradol 30 Mg Injection Administered 09/13/17 18:29 Dose 60 mg .ROUTE .STK-MED ONE Orphenadrine Citrate 60 mg 09/13/17 18:23 09/13/17 18:31 Norflex 60 Mg/2 Ml IM 09/13/17 18:24 60 mg STAT ONE Administration Orphenadrine Citrate Confirm 09/13/17 18:28 Norflex 60 Mg/2 Ml Administered 09/13/17 18:29 Dose 60 mg .ROUTE .STK-MED ONE - Progress Progress: pain not gone completely Progress Note: 09/13/17 19:23 ADMINISTERED NORFLEX 60MG IM, TORADOL 60MG IM Counseled pt/family regarding: diagnosis, need for follow-up, rad results - Departure Time of Disposition: 19:31 Departure Disposition: Home Clinical Impression: EXACERBATION CHRONIC LOW BACK PAIN Condition: Stable Critical Care Time: No Referrals: HANNA CAR MD [Primary Care Provider] - Additional Instructions: CONSULT YOUR PAIN SPECIALIST DR IVEY FOR FOLLOWUP. NORFLEX 100MG TWICE DAILY FOR MUSCLE SPASMS FOR 1 WEEK. PERCOCET 10/325 EVERY 6 HOURS NEEDED FOR PAIN. CONSULT YOUR PRIMARY CARE PROVIDER FOR PAIN MANAGEMENT. Prescriptions: Oxycodone HCl/Acetaminophen [Percocet 10-325 mg Tablet] 1 each PO Q6HPRN PRN #8 tablet MDD 4 PRN Reason: Pain Orphenadrine Citrate 100 mg [Norflex 100 MG Tablet] 100 mg PO BID #14 tab
[2017-09-13 19:33] VITALS: BP 132/92; PULSE 74; O2SAT 97
--- NOTE | 2017-09-15 13:02 | XRAY ---
Exam: 3 view lumbar spine series from 09/13/2017. Comparison: Flexion and extension upright lateral images of the lumbar spine from 11/15/2015. Indication: Low back pain that has become worse over the last few days, neurostimulator surgery in 2017. Findings: AP, lateral, and coned-down lateral films of the lumbosacral junction were obtained. There are 5 [id number] lumbar-type vertebra. I see no acute lumbar spine fracture or AP subluxation. Minimal anterior vertebral endplate spurs are seen within the lower thoracolumbar spine. There is slight loss of anterior vertebral body height of L1 which is chronic. I do not believe this is significant. The lumbar intervertebral disc spaces are well-maintained. No focal bone destruction is seen. A right-sided neurostimulator is seen with 2 leads entering the spinal canal at T12-L1 and being directed superiorly off the upper margin of the radiographs. Numerous small calcified splenic granulomas are seen. The pedicles are intact. No bone destruction is seen. The sacroiliac joints appear unremarkable. Mild atherosclerotic vascular calcification is seen within the abdominal aorta. Correlate clinically regarding diabetes. Impression: 1. No acute lumbar spine fracture or AP subluxation is seen. The disc spaces are well-maintained. 2. I note a neurostimulator on the right, as discussed above. The distal aspect of the intraspinal leads have not been included at the superior margin of the radiographs. 3. The remainder of the lumbar spine is remarkable only for minimal vertebral endplate spurring.
== END 2017-09-13 19:33 | disposition home or self-care (01) ==
LOC: ED 18:03
DX: M54.5 Low back pain (principal); G89.29 Other chronic pain; F45.42 Pain disorder with related psychological factors; Z79.899 Other long term (current) drug therapy; I10 Essential (primary) hypertension; E78.00 Pure hypercholesterolemia, unspecified; K21.9 Gastro-esophageal reflux disease without esophagitis; M19.90 Unspecified osteoarthritis, unspecified site; F41.8 Other specified anxiety disorders; K75.9 Inflammatory liver disease, unspecified
CPT/HCPCS: 72100; 96372; 99283; J1885; J2360

== ENCOUNTER 2017-10-10 14:58 | Emergency (ER) | payer BC ==
[2017-10-10] MEDS ORDERED: ROCEPHIN 1 Gm-D5w 50 ml Bag** 1 G/50 ML IVPB IV STA (16:17)
[2017-10-10] MEDS ORDERED: solu-MEDROL 125 MG IV ONE (16:17)
[2017-10-10] MEDS ORDERED: PROVENTIL 2.5 MG/3 ML NEB IH ONE ×2 (16:17→16:30)
--- NOTE | 2017-10-10 16:17 | ERPHSYRPT ---
- History of Present Illness Time Seen by Provider: 10/10/17 16:12 Source: patient Exam Limitations: no limitations Patient Subjective Stated Complaint: Pt states "I went to clinic last week and they thought it was just a flair up of copd, but it has been a week and I am still coughing. I have tried over the counter cough medicine and nothing is helping." Triage Nursing Assessment: Pt alert and oriented X 3, skin pwd PT ambulates with an upright steady gait, able to speak in clear full sentences. PT coughing intermittantly, dry cough. Physician History: The patient is a 47-year-old male with a worsening cough for 8 days. Last week he got a "shot" of a steroid at [facility] and felt better for couple of days but now is feeling worse again. He did not receive an antibiotic. He called his doctor who requested that he come to the ER today. Last night he woke up with sweats as well as a cough. His past medical history is significant for COPD, hypertension. He still smokes cigarettes. Timing/Duration: day(s) (8), gradual onset, worse Cough Quality/Degree: severe, dry cough Possible Cause: occasional episodes, smoke exposure Modifying Factors: Improves With: albuterol nebulizer Associated Symptoms: chills, shortness of breath Allergies/Adverse Reactions: No Known Drug Allergies Allergy (Verified 07/23/17 15:38) Home Medications: Omeprazole 40 mg PO DAILY 12/10/14 [History] Aspirin 81 gm Chew [Baby Aspirin 81 mg Chew] 81 mg PO DAILY 01/06/15 [ History] Lisinopril [Zestril 40 mg] 40 mg PO DAILY 06/15/15 [History] Atorvastatin Calcium 20 mg DAILY 07/23/17 [History] Gabapentin 600 mg PO TID 09/13/17 [History] Hx Tetanus, Diphtheria Vaccination/Date Given: Yes Hx Influenza Vaccination/Date Given: Yes Hx Pneumococcal Vaccination/Date Given: No Immunizations Up to Date: Yes - Review of Systems Constitutional: Chills, No Fever Eyes: No Symptoms Ears, Nose, & Throat: No Symptoms Respiratory: Cough, Wheezing Cardiac: No Chest Pain, No Edema, No Syncope Abdominal/Gastrointestinal: No Abdominal Pain, No Nausea, No Vomiting, No Diarrhea Genitourinary Symptoms: No Dysuria Musculoskeletal: No Back Pain, No Neck Pain Skin: No Rash Neurological: No Dizziness, No Focal Weakness, No Sensory Changes Psychological: No Symptoms Endocrine: No Symptoms Hematologic/Lymphatic: No Symptoms Immunological/Allergic: No Symptoms All Other Systems: Reviewed and Negative - Past Medical History Pertinent Past Medical History: Yes Neurological History: No Pertinent History ENT History: No Pertinent History Cardiac History: High Cholesterol, Hypertension, Other Respiratory History: No Pertinent History Endocrine Medical History: Other Musculoskeletal History: Osteoarthritis GI Medical History: Colitis, GERD, Hepatitis History: No Pertinent History Psycho-Social History: Anxiety, Depression Male Reproductive Disorders: No Pertinent History Other Medical History: Stenosis of the heart,states hes hepatitis treatment and is hep free - Past Surgical History Past Surgical History: Yes Neuro Surgical History: No Pertinent History Cardiac: Cardiac Catheterization Respiratory: No Pertinent History Gastrointestinal: Appendectomy Genitourinary: No Pertinent History Musculoskeletal: Orthopedic Surgery Male Surgical History: No Pertinent History Other Surgical History: TONSILS. steroid back injections-. 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 - Social History Smoking Status: Current every day smoker How long have you smoked: 34 years Exposure to second hand smoke: Yes Alcohol Use: Socially Drug Use: none Patient Lives Alone: No Significant Family History: no pertinent family hx - Nursing Vital Signs Nursing Vital Signs: Initial Vital Signs Temperature 99.2 F 10/10/17 15:04 Pulse Rate 102 H 10/10/17 15:04 Respiratory Rate 18 10/10/17 15:04 Blood Pressure 117/73 10/10/17 15:04 O2 Sat by Pulse Oximetry 97 10/10/17 15:04 Pain Scale Pain Intensity 8 - Physical Exam General Appearance: mild distress Eye Exam: PERRL/EOMI, eyes nml inspection Ears, Nose, Throat Exam: normal ENT inspection, TMs normal, pharynx normal, moist mucous membranes Neck Exam: normal inspection, non-tender, supple, full range of motion Respiratory Exam: prolonged expirations, rhonchi, wheezing Cardiovascular Exam: regular rate/rhythm, normal heart sounds Gastrointestinal/Abdomen Exam: soft, No tenderness Rectal Exam: not done Back Exam: normal inspection, No CVA tenderness, No vertebral tenderness Extremity Exam: normal inspection, normal range of motion Neurologic Exam: alert, oriented x 3, cooperative, normal mood/affect, sensation nml, No motor deficits Skin Exam: normal color, warm, dry, No rash Lymphatic Exam: No adenopathy SpO2 Interpretation: normal SpO2: 97 Oxygen Delivery: Room Air - Radiology Exams Chest X-ray Interpretation: Interpreted by me, Infiltrates (right lung base, comp 1 V CXR from 07/23/17.) Ordered Tests: Active Orders 24 hr Category Date Time Status IV Insertion STAT Care 10/10/17 16:17 Active CHEST 2 VIEWS (PA AND LAT) Stat Exams 10/10/17 16:18 Taken BMP Stat Lab 10/10/17 15:35 Completed CBC W DIFF Stat Lab 10/10/17 15:35 Completed Respiratory Nebulizer STAT RT 10/10/17 16:19 Active Medication Summary Discontinued Medications Generic Name Dose Route Start Last Admin Trade Name Freq PRN Reason Stop Dose Admin Albuterol Sulfate 2.5 mg 10/10/17 16:17 10/10/17 16:33 Proventil 2.5 Mg/3 Ml Neb IH 10/10/17 16:18 2.5 mg STAT ONE Administration Albuterol Sulfate Confirm 10/10/17 16:30 Proventil 2.5 Mg/3 Ml Neb Administered 10/10/17 16:31 Dose 2.5 mg IH .STK-MED ONE Ceftriaxone Sodium/Dextrose 1 g in 50 mls @ 100 mls/hr 10/10/17 16:17 17:44 Rocephin 1 Gm-D5w 50 Ml Bag IV 10/10/17 16:46 Infused STAT STA Infusion Ceftriaxone Sodium/Dextrose Confirm 10/10/17 16:21 Rocephin 1 Gm-D5w 50 Ml Bag Administered 10/10/17 16:22 Dose 1 g in 50 mls @ ud IV .STK-MED ONE Methylprednisolone Sodium Succinate 125 mg 10/10/17 16:17 10/10/17 16:22 Solu-Medrol 125 Mg IV 10/10/17 16:18 125 mg STAT ONE Administration Methylprednisolone Sodium Succinate Confirm 10/10/17 16:21 Solu-Medrol 125 Mg Administered 10/10/17 16:22 Dose 125 mg .ROUTE .STK-MED ONE Lab/Rad Data: Laboratory Result Diagrams 10/10/17 15:35 10/10/17 15:35 Laboratory Results 10/10/17 10/10/17 Range/Units 15:35 15:35 WBC 17.2 H (4.0-10.5) K/mm3 RBC 4.34 (4.1-5.6) M/mm3 Hgb 13.9 (12.5-18.0) gm/dl Hct 39.6 L (42-50) % MCV 91.2 (78-100) fl MCH 32.0 (26-32) pg MCHC 35.1 (32-36) g/dl RDW 13.0 (11.5-14.0) % Plt Count 301 (150-450) K/mm3 MPV 11.3 H (6-9.5) fl Gran % 82.8 H (36.0-66.0) % Eos # (Auto) 0.01 (0-0.5) Absolute Lymphs (auto) 1.97 (1.0-4.6) Absolute Monos (auto) 0.95 (0.0-1.3) Lymphocytes % 11.5 L (24.0-44.0) % Monocytes % 5.5 (0.0-12.0) % Eosinophils % 0.1 (0.00-5.0) % Basophils % 0.1 (0.0-0.4) % Absolute Granulocytes 14.25 H (1.4-6.9) Basophils # 0.02 (0-0.4) Sodium 141 (137-145) mmol/L Potassium 4.2 (3.5-5.1) mmol/L Chloride 105 (98-107) mmol/L Carbon Dioxide 21 L (22-30) mmol/L Anion Gap 18.6 H (5-15) MEQ/L BUN 24 H (9-20) mg/dL Creatinine 1.05 (0.66-1.25) mg/dL Estimated GFR > 60.0 ML/MIN Glucose 172 H (74-106) mg/dL Calcium 10.0 (8.4-10.2) mg/dL - Progress Progress: improved Air Movement: fair Counseled pt/family regarding: lab results, diagnosis, need for follow-up, rad results - Departure Time of Disposition: 17:54 Departure Disposition: Home Clinical Impression: Pneumonia Condition: Stable Critical Care Time: No Referrals: HANNA CAR MD [Primary Care Provider] - Additional Instructions: You have pneumonia in your right lung. You were given a DuoNeb treatments. You were given Solu-Medrol 125 mg and Rocephin 1 g by IV in the ER. Take azithromycin 2 tablets today followed by 1 tablet every day for the next 4 days. Take Phenergan With Codeine 5 mL every 4-6 hours as needed for cough. Follow-up with your primary medical doctor in one to 2 days. Prescriptions: Azithromycin 250 mg [Zithromax 250 MG TABLET] 250 mg PO ZPACK #6 tablet Promethazine W Codeine Syr [Phenergan with Codeine Syrup] 5 ml PO Q4- 6HPRN PRN #100 ml PRN Reason: Cough
[2017-10-10] MEDS ORDERED: solu-MEDROL 125 MG ONE (16:21)
[2017-10-10] MEDS ORDERED: ROCEPHIN 1 Gm-D5w 50 ml Bag** 1 G/50 ML IVPB IV ONE (16:21)
[2017-10-10 16:38] LABS: BASOPHIL % 0.1 % (0.0-0.4); Basophil (Absolute #) 0.02 (0-0.4); Eosinophil % 0.1 % (0.00-5.0); Eosinophil (Absolute #) 0.01 (0-0.5); Granulocyte Absolute (ANC) 14.25 (1.4-6.9); Granulocytes % 82.8 % (36.0-66.0); Hematocrit 39.6 % (42-50); Hemoglobin 13.9 gm/dl (12.5-18.0); Lymphocyte (Absolute #) 1.97 (1.0-4.6); Lymphocytes % 11.5 % (24.0-44.0); Mean Cell Volume 91.2 fl (78-100); Mean Corpuscular Hgb Concent. 35.1 g/dl (32-36); Mean Platelet Volume 11.3 fl (6-9.5); Monocyte (Absolute #) 0.95 (0.0-1.3); Monocytes % 5.5 % (0.0-12.0); Platelet Count 301 K/mm3 (150-450); Red Blood Count 4.34 M/mm3 (4.1-5.6); White Blood Count 17.2 K/mm3 (4.0-10.5)
[2017-10-10 16:59] LABS: ANION GAP 18.6 MEQ/L (5-15); BLOOD UREA NITROGEN 24 mg/dL (9-20); CHLORIDE 105 mmol/L (98-107); Carbon Dioxide 21 mmol/L (22-30); Creatinine 1 1.05 mg/dL (0.66-1.25); Glucose 172 mg/dL (74-106); Potassium 4.2 mmol/L (3.5-5.1); SODIUM 141 mmol/L (137-145)
[2017-10-10 17:43] VITALS: BP 118/70; PULSE 88
[2017-10-10 17:59] VITALS: O2SAT 97
--- NOTE | 2017-10-11 02:01 | XRAY ---
Exam: Two-view chest from 10/10/2017. Comparison: AP upright portable chest film from 07/23/2017. Indication: Cough, shortness of breath, low-grade fever, history of smoking for over 30 years, spinal stimulator implanted last year. Findings: Upright PA and lateral chest films are submitted for evaluation. The heart size and contour are normal. The pulmonary vascularity is normal. Granulomatous calcifications are seen within the distal right paratracheal projection, subcarinal region, and right hilum. I also see some small scattered calcified granulomas within both lower lung bose, more numerous on the right than left.. Compared to the prior study of 07/23/2017, there is some new subtle airspace opacity at the medial right lung base within the right lower lobe. This could relate to focal atelectasis or subtle airspace infiltrate within the right lower lobe. Pneumonia is not completely excluded. The remainder of the lung bose appears clear. No pneumothorax or abnormal soft tissue lung nodularity is seen. There is minimal blunting of the left costophrenic angle which may represent minimal pleural thickening or scarring. No pleural fluid is seen within the posterior lung sulci. The right costophrenic angle is sharp. Neural stimulator leads enter the spinal canal at the thoracolumbar junction and are directed superiorly with the lead tips projected at the inferior aspect of T7. This is unchanged. Mild mid dorsal kyphosis is seen. Impression: 1. Compared to the prior chest film from 07/23/2017, there is some subtle new airspace disease at the medial right lung base within the right lower lobe. This may represent partial atelectasis or subtle airspace pneumonic infiltrate within the right lower lobe. Correlate clinically. Follow-up is warranted. 2. Old healed granulomatous disease, minimal pleural thickening/scarring blunting the left costophrenic angle, and spinal stimulator leads in place, as described above, are seen. 3. No other acute cardiopulmonary disease is seen.
== END 2017-10-10 18:08 | disposition home or self-care (01) ==
LOC: ED 14:58
DX: J18.9 Pneumonia, unspecified organism (principal); I10 Essential (primary) hypertension; M19.90 Unspecified osteoarthritis, unspecified site; K21.9 Gastro-esophageal reflux disease without esophagitis; F41.9 Anxiety disorder, unspecified; Z72.0 Tobacco use
CPT/HCPCS: 36000; 36415; 71046; 80048; 85025; 94150; 94640; 96374; 99284; J7609; J0696; J2930; A9270-GY

== ENCOUNTER 2018-01-14 10:20 | Emergency (ER) | payer BC ==
[2018-01-14 10:32] VITALS: O2SAT 99
[2018-01-14] MEDS ORDERED: TORAdol 30 mg Injection IM ONE (10:54)
[2018-01-14] MEDS ORDERED: TORAdol 30 mg Injection ONE (10:56)
--- NOTE | 2018-01-14 10:59 | ERPHSYRPT ---
- History of Present Illness Time Seen by Provider: 01/14/18 10:55 Source: patient Exam Limitations: no limitations Patient Subjective Stated Complaint: PT states "I was at work and I have this lump on my throat and my head has been hurting, I think I have a sinus infection." Triage Nursing Assessment: PT alert and oriented X 3, skin pwd. Pt ambulates with an upright steady gait, able to speak in clear full sentences. PT texting without any difficulty when sitting in waiting room. pt in no apparent respiratory distress. Physician History: 47-year-old white male arrives with complaint of headache, sore throat, states he feels like he might have a sinus infection. Symptoms going on for 3 days. No vomiting no fevers no diarrhea. Past medical history includes hypercholesterolemia, high blood pressure, osteoarthritis, colitis, GERD, hepatitis, anxiety, depression. Past surgical history includes cardiac catheter, appendectomy, orthopedic surgery, steroid back injections, tonsils Timing/Duration: day(s) (3 days) Severity: moderate Associated Symptoms: headaches, other (sore throat), No nausea, No vomiting, No abdominal pain, No shortness of breath, No diaphoresis, No cough, No chills, No chest pain, No fever, No syncope, No seizure, No weakness Allergies/Adverse Reactions: No Known Drug Allergies Allergy (Verified 07/23/17 15:38) Home Medications: Omeprazole 40 mg PO DAILY 12/10/14 [History] Lisinopril [Zestril 40 mg] 40 mg PO DAILY 06/15/15 [History] Atorvastatin Calcium 20 mg DAILY 07/23/17 [History] Gabapentin 600 mg PO TID 09/13/17 [History] Hx Tetanus, Diphtheria Vaccination/Date Given: Yes Hx Influenza Vaccination/Date Given: No Hx Pneumococcal Vaccination/Date Given: No Immunizations Up to Date: Yes - Review of Systems Constitutional: No Fever, No Chills Eyes: No Symptoms Ears, Nose, & Throat: Throat Pain, Painful Swallowing, No Ear Pain, No Ear Discharge, No Hearing Changes, No Tinnitus, No Nose Pain, No Nose Congestion, No Nose Discharge, No Sinus Drainage, No Epistaxis, No Mouth Pain, No Mouth Swelling, No Loose Teeth, No Throat Swelling, No Hoarse, No Snoring, No Stridor Respiratory: No Cough, No Dyspnea Cardiac: No Chest Pain, No Edema, No Syncope Abdominal/Gastrointestinal: No Abdominal Pain, No Nausea, No Vomiting, No Diarrhea Genitourinary Symptoms: No Dysuria Musculoskeletal: No Back Pain, No Neck Pain Skin: No Rash Neurological: Headache, No Dizziness, No Focal Weakness, No Gait Changes, No Irritability, No Lethargy, No Paralysis, No Parasthesia, No Seizure, No Sensory Changes, No Speech Changes, No Tics, No Tremors Psychological: No Symptoms Endocrine: No Symptoms All Other Systems: Reviewed and Negative - Past Medical History Pertinent Past Medical History: Yes Neurological History: No Pertinent History ENT History: No Pertinent History Cardiac History: High Cholesterol, Hypertension, Other Respiratory History: No Pertinent History Endocrine Medical History: Other Musculoskeletal History: Osteoarthritis GI Medical History: Colitis, GERD, Hepatitis History: No Pertinent History Psycho-Social History: Anxiety, Depression Male Reproductive Disorders: No Pertinent History Other Medical History: Stenosis of the heart,states hes hepatitis treatment and is hep free - Past Surgical History Past Surgical History: Yes Neuro Surgical History: No Pertinent History Cardiac: Cardiac Catheterization Respiratory: No Pertinent History Gastrointestinal: Appendectomy Genitourinary: No Pertinent History Musculoskeletal: Orthopedic Surgery Male Surgical History: No Pertinent History Other Surgical History: TONSILS. steroid back injections-. 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 - Social History Smoking Status: Current every day smoker How long have you smoked: years Exposure to second hand smoke: Yes Alcohol Use: Socially Drug Use: none Patient Lives Alone: No Significant Family History: no pertinent family hx - Nursing Vital Signs Nursing Vital Signs: Initial Vital Signs Temperature 98.4 F 01/14/18 10:26 Pulse Rate 80 01/14/18 10:26 Respiratory Rate 16 01/14/18 10:26 Blood Pressure 134/85 01/14/18 10:26 O2 Sat by Pulse Oximetry 99 01/14/18 10:26 Pain Scale Pain Intensity 4 - Physical Exam General Appearance: mild distress Eye Exam: PERRL/EOMI, eyes nml inspection Ears, Nose, Throat Exam: normal ENT inspection, TMs normal, moist mucous membranes, pharyngeal erythema (slight pharyngeal erythema), other (patient states larynx tender externally no masses noted) Neck Exam: normal inspection, non-tender, supple, full range of motion Respiratory Exam: normal breath sounds, lungs clear, No respiratory distress Cardiovascular Exam: regular rate/rhythm, normal heart sounds, normal peripheral pulses Gastrointestinal/Abdomen Exam: soft, normal bowel sounds, No tenderness, No mass Back Exam: normal inspection, normal range of motion, No CVA tenderness, No vertebral tenderness Extremity Exam: normal inspection, normal range of motion, pelvis stable Neurologic Exam: alert, oriented x 3, cooperative, application assistant II-XII nml as tested, normal mood/affect, nml cerebellar function, nml station & gait, sensation nml, No motor deficits Skin Exam: normal color, warm, dry, No rash SpO2 Interpretation: normal (99%) SpO2: 99 Oxygen Delivery: Room Air Ordered Tests: Medication Summary Discontinued Medications Generic Name Dose Route Start Last Admin Trade Name Judd PRN Reason Stop Dose Admin Ketorolac Tromethamine 60 mg 01/14/18 10:54 01/14/18 10:57 Toradol 30 Mg Injection IM 01/14/18 10:55 60 mg STAT ONE Administration Ketorolac Tromethamine Confirm 01/14/18 10:56 Toradol 30 Mg Injection Administered 01/14/18 10:57 Dose 60 mg .ROUTE .[employer] ONE Lab/Rad Data: Laboratory Results 01/14/18 Range/Units 11:20 Group A Strep Antibody NEGATIVE (NEGATIVE) - Progress Progress: improved Progress Note: 01/14/18 12:08 47-year-old white male arrives with complaint of sore throat headache symptoms for 3 days. Patient afebrile. Patient's strep is negative. Patient improved with Toradol still mild pain in the throat. Will go ahead and place patient on a small amount of [place]. I've offered to give patient today and tomorrow off of work she states she like to go back to work tomorrow. Will give a slip for today. Will also have patient take Advil. - Departure Time of Disposition: 12:09 Departure Disposition: Home Clinical Impression: Pharyngitis with viral syndrome Headache Qualifiers: Headache type: unspecified Headache chronicity pattern: acute headache Intractability: not intractable Qualified Code(s): R51 - Headache Condition: Fair Critical Care Time: No Referrals: HANNA CAR MD [Primary Care Provider] - Instructions: Viral Pharyngitis (DC) Additional Instructions: Return home rest in a dark quiet room. [place] as prescribed. May additionally take Advil every 6 hours. Plenty of fluids. Follow-up with your family doctor if symptoms are worse, no better in 48 hours, or persist longer than one week. Return for acute distress or for severe symptoms. Prescriptions: Hydrocodone/Acetaminophen [[place] 5-325 Tablet] 1 tab PO Q4-6HPRN PRN #10 tablet MDD 6 tablets PRN Reason: Pain
[2018-01-14 12:30] VITALS: BP 151/84; PULSE 87
== END 2018-01-14 12:28 | disposition home or self-care (01) ==
LOC: ED 10:20
DX: J02.9 Acute pharyngitis, unspecified (principal); B34.9 Viral infection, unspecified; R51 Headache; I10 Essential (primary) hypertension; E78.00 Pure hypercholesterolemia, unspecified; M19.90 Unspecified osteoarthritis, unspecified site; K21.9 Gastro-esophageal reflux disease without esophagitis; F41.9 Anxiety disorder, unspecified; F32.9 Major depressive disorder, single episode, unspecified; K75.9 Inflammatory liver disease, unspecified; Z72.0 Tobacco use; Z79.899 Other long term (current) drug therapy
CPT/HCPCS: 87651; 96372; 99284; J1885

== ENCOUNTER 2018-02-13 17:11 | Emergency (ER) | payer BC ==
[2018-02-13] MEDS ORDERED: ROCEPHIN 1 Gm-D5w 50 ml Bag** 1 G/50 ML IVPB IV STA (18:50)
[2018-02-13] MEDS ORDERED: Zithromax 500 MG/ 250 ML NaCl Premix 500 MG/250 ML IVPB IV STA (18:50)
[2018-02-13] MEDS ORDERED: DUONEB 0.5-3 MG/3 ml Neb IH ONE ×2 (18:50→19:08)
[2018-02-13 18:58] LABS: BASOPHIL % 0.4 % (0.0-0.4); Basophil (Absolute #) 0.02 (0-0.4); Eosinophil % 2.8 % (0.00-5.0); Eosinophil (Absolute #) 0.16 (0-0.5); Granulocyte Absolute (ANC) 3.46 (1.4-6.9); Granulocytes % 60.7 % (36.0-66.0); Hematocrit 35.4 % (42-50); Hemoglobin 12.2 gm/dl (12.5-18.0); Lymphocyte (Absolute #) 1.46 (1.0-4.6); Lymphocytes % 25.7 % (24.0-44.0); Mean Cell Volume 93.2 fl (78-100); Mean Corpuscular Hemoglobin 32.1 pg (26-32); Mean Corpuscular Hgb Concent. 34.5 g/dl (32-36); Monocyte (Absolute #) 0.59 (0.0-1.3); Monocytes % 10.4 % (0.0-12.0); Platelet Count 174 K/mm3 (150-450); Red Cell Distribution Width 12.9 % (11.5-14.0); White Blood Count 5.7 K/mm3 (4.0-10.5)
--- NOTE | 2018-02-13 18:58 | ERPHSYRPT ---
- History of Present Illness Source: patient Exam Limitations: no limitations Patient Subjective Stated Complaint: Pt states "I left work early today. I have had a cough for the past 3 days and I just cannot get anything out. I feel like I need to but nothing will come up. I have coughed so much that my stomach hurts and my lungs hurt." Triage Nursing Assessment: Pt alert and oriented X 3, skin pwd. PT ambulates with an upright steady gait, able to speakin clear full sentences. Pt has intermittant non productive cough. Timing/Duration: day(s) Severity of Dyspnea-Current: moderate Possible Cause: occasional episodes Modifying Factors: Improves With: albuterol inhaler, albuterol nebulizer, coughing, deep breath, exertion Associated Symptoms: cough International travel in last 2 weeks: No Hx Tetanus, Diphtheria Vaccination/Date Given: Yes Hx Influenza Vaccination/Date Given: No Hx Pneumococcal Vaccination/Date Given: No Immunizations Up to Date: Yes <AROLDO GAY - Last Filed: 02/13/18 19:11> <PRITESH RUSSO - Last Filed: 02/13/18 22:17> - History of Present Illness Time Seen by Provider: 02/13/18 20:10 Physician History: Pt is a 47 y/o male with a h/o COPD and smoker, that developed cough and wheeze for the last few days. Pt is using his Albuterol MDI, and OTC Robitussin for cough, but did not improve. he states, he is coughing so much, that he has pain in his abdomen. He denies any sputum. No F/C/S. No chest pain or palpitations. No N/V/D or abdominal pain. (AROLDO GAY) Allergies/Adverse Reactions: No Known Drug Allergies Allergy (Verified 07/23/17 15:38) Home Medications: Omeprazole 40 mg PO DAILY 12/10/14 [History] Lisinopril [Zestril 40 mg] 40 mg PO DAILY 06/15/15 [History] Atorvastatin Calcium 20 mg DAILY 07/23/17 [History] Gabapentin 600 mg PO TID 09/13/17 [History] - Review of Systems Constitutional: No Fever, No Chills Eyes: No Symptoms Ears, Nose, & Throat: No Symptoms Respiratory: Cough, Dyspnea, Dyspnea on Exertion ([place]), Wheezing Cardiac: No Chest Pain, No Edema, No Syncope Abdominal/Gastrointestinal: No Abdominal Pain, No Nausea, No Vomiting, No Diarrhea Genitourinary Symptoms: No Dysuria Musculoskeletal: No Back Pain, No Neck Pain Skin: No Rash Neurological: No Dizziness, No Focal Weakness, No Sensory Changes Psychological: No Symptoms Endocrine: No Symptoms All Other Systems: Reviewed and Negative <ALICIAAROLDO - Last Filed: 02/13/18 19:11> - Past Medical History Pertinent Past Medical History: Yes Neurological History: No Pertinent History ENT History: No Pertinent History Cardiac History: High Cholesterol, Hypertension, Other Respiratory History: No Pertinent History Endocrine Medical History: Other Musculoskeletal History: Osteoarthritis GI Medical History: Colitis, GERD, Hepatitis History: No Pertinent History Psycho-Social History: Anxiety, Depression Male Reproductive Disorders: No Pertinent History Other Medical History: Stenosis of the heart,states hes hepatitis treatment and is hep free - Past Surgical History Past Surgical History: Yes Neuro Surgical History: No Pertinent History Cardiac: Cardiac Catheterization Respiratory: No Pertinent History Gastrointestinal: Appendectomy Genitourinary: No Pertinent History Musculoskeletal: Orthopedic Surgery Male Surgical History: No Pertinent History Other Surgical History: TONSILS. steroid back injections-. 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 - Social History Smoking Status: Current every day smoker How long have you smoked: 33 years Exposure to second hand smoke: Yes Alcohol Use: Socially Drug Use: none Patient Lives Alone: Yes Significant Family History: no pertinent family hx <ALICIAAROLDO Filed: 02/13/18 19:11> - Physical Exam General Appearance: no apparent distress, alert Eye Exam: PERRL/EOMI Neck Exam: normal inspection, supple Respiratory Exam: respiratory distress, accessory muscle use, wheezing, other ( Cough with deep inhlation) Cardiovascular/Chest Exam: normal heart sounds, regular rate/rhythm Abdominal/Gastrointestinal Exam: soft, No tenderness, No distention, No mass Extremity Exam: non-tender, normal range of motion, normal inspection, no calf tenderness, no pedal edema Neurologic Exam: alert, oriented x 3, cooperative, offset plate maker II-XII nml as tested, sensation nml, No motor deficits Skin Exam: normal color, warm, No dry SpO2: 97 Oxygen Delivery: Room Air <AROLDO GAY Last Filed: 02/13/18 19:11> - Physical Exam SpO2 Interpretation: normal (97%) <PRITESH RUSSO - Last Filed: 02/13/18 22:17> - Nursing Vital Signs Nursing Vital Signs: Initial Vital Signs Temperature 98.8 F 02/13/18 17:12 Pulse Rate 102 H 02/13/18 17:12 Respiratory Rate 22 02/13/18 17:12 Blood Pressure 121/93 02/13/18 17:12 O2 Sat by Pulse Oximetry 100 02/13/18 17:12 Pain Scale Pain Intensity 4 - Course Nursing assessment & vital signs reviewed: Yes EKG Interpreted by Me: RATE (91 bpm), Sinus Rhythm, NORMAL AXIS, Other (EKG sinus rhythm, 91 bpm, normal axis, no acute ST or T wave changes) <PRITESH RUSSO - Last Filed: 02/13/18 22:17> Ordered Tests: Active Orders 24 hr Category Date Time 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 Care 02/13/18 19:20 Active IV Insertion STAT Care 02/13/18 18:50 Active Oxygen-ED Only NASAL CANNULA 2 lpm Care 02/13/18 18:50 Active Pulse Oximetry (ED) STAT Care 02/13/18 19:20 Active CHEST 2 VIEWS (PA AND LAT) Stat Exams 02/13/18 18:51 Taken BLOOD CULTURE Stat Lab 02/13/18 17:25 Received BLOOD CULTURE Stat Lab 02/13/18 19:50 Received CBC W DIFF Stat Lab 02/13/18 17:25 Completed CMP Stat Lab 02/13/18 17:25 Completed CULTURE,URINE Stat Lab 02/13/18 19:40 Received Lactic Acid Stat Lab 02/13/18 19:50 Completed PT INR [PROTIME WITH INR] Stat Lab 02/13/18 17:25 Completed PTT Stat Lab 02/13/18 17:25 Completed Urinalysis with Microscopy Stat Lab 02/13/18 19:40 Completed Peak Expiratory Flow Rate ONCE RT 02/13/18 19:16 Active Respiratory Nebulizer STAT RT 02/13/18 18:53 Completed Respiratory Therapy Assessment DAILY RT 02/13/18 19:16 Active Medication Summary Discontinued Medications Generic Name Dose Route Start Last Admin Trade Name Freq PRN Reason Stop Dose Admin Albuterol/Ipratropium 3 ml 02/13/18 18:50 02/13/18 19:11 Duoneb 0.5-3 Mg/3 Ml Neb IH 02/13/18 18:51 3 ml STAT ONE Administration Albuterol/Ipratropium Confirm 02/13/18 19:08 Duoneb 0.5-3 Mg/3 Ml Neb Administered 02/13/18 19:09 Dose 3 ml IH .STK-MED ONE Ceftriaxone Sodium/Dextrose 1 g in 50 mls @ 100 mls/hr 02/13/18 18:50 19:57 Rocephin 1 Gm-D5w 50 Ml Bag IV 02/13/18 19:19 100 ml/hr STAT STA 100 mls/hr Administration Azithromycin 500 mg in 250 mls @ 250 mls/hr 02/13/18 18:50 02/13/18 20:35 Zithromax 500 Mg/ 250 Ml Nacl Premix IV 02/13/18 19:49 250 mls/hr STAT STA 250 mls/hr Administration Azithromycin Confirm 02/13/18 19:54 Zithromax 500 Mg/ 250 Ml Nacl Premix Administered 02/13/18 19:55 Dose 500 mg in 250 mls @ ud IV .STK-MED ONE Ceftriaxone Sodium/Dextrose Confirm 02/13/18 19:54 Rocephin 1 Gm-D5w 50 Ml Bag Administered 02/13/18 19:55 Dose 1 g in 50 mls @ ud IV .STK-MED ONE Sodium Chloride 1,000 mls @ 999 mls/hr 02/13/18 20:09 02/13/18 20:13 Sodium Chloride 0.9% 1000 Ml IV 02/13/18 21:09 999 mls/hr .Q1H1M STA Administration Sodium Chloride Confirm 02/13/18 20:11 Sodium Chloride 0.9% 1000 Ml Administered 02/13/18 20:12 Dose 1,000 mls @ ud .ROUTE .STK-MED ONE Methylprednisolone Sodium Succinate 125 mg 02/13/18 20:09 02/13/18 20:13 Solu-Medrol 125 Mg IV 02/13/18 20:10 125 mg STAT ONE Administration Methylprednisolone Sodium Succinate Confirm 02/13/18 20:11 Solu-Medrol 125 Mg Administered 02/13/18 20:12 Dose 125 mg .ROUTE .STK-MED ONE Lab/Rad Data: Laboratory Result Diagrams 02/13/18 17:25 02/13/18 17:25 Laboratory Results 02/13/18 02/13/18 02/13/18 Range/Units 19:50 19:40 19:00 WBC (4.0-10.5) K/mm3 RBC (4.1-5.6) M/mm3 Hgb (12.5-18.0) gm/dl Hct (42-50) % MCV (78-100) fl MCH (26-32) pg MCHC (32-36) g/dl RDW (11.5-14.0) % Plt Count (150-450) K/mm3 MPV (6-9.5) fl Gran % (36.0-66.0) % Eos # (Auto) (0-0.5) Absolute Lymphs (auto) (1.0-4.6) Absolute Monos (auto) (0.0-1.3) Lymphocytes % (24.0-44.0) % Monocytes % (0.0-12.0) % Eosinophils % (0.00-5.0) % Basophils % (0.0-0.4) % Absolute Granulocytes (1.4-6.9) Basophils # (0-0.4) PT (8.83-12.87) SECONDS INR (0.8-3.0) APTT (24.1-36.1) SECONDS Sodium (137-145) mmol/L Potassium (3.5-5.1) mmol/L Chloride (98-107) mmol/L Carbon Dioxide (22-30) mmol/L Anion Gap (5-15) MEQ/L BUN (9-20) mg/dL Creatinine (0.66-1.25) mg/dL Estimated GFR ML/MIN Glucose (74-106) mg/dL Lactic Acid 0.7 (0.4-2.0) Calcium (8.4-10.2) mg/dL Total Bilirubin (0.2-1.3) mg/dL AST (17-59) U/L ALT (0-50) U/L Alkaline Phosphatase (38-126) U/L Serum Total Protein (6.3-8.2) g/dL Albumin (3.5-5.0) g/dL Urine Color YELLOW (YELLOW) Urine Appearance CLEAR (CLEAR) Urine pH 5.0 (5-6) Ur Specific [place] 1.021 (1.005-1.025) Urine Protein NEGATIVE (Negative) Urine Ketones NEGATIVE (NEGATIVE) Urine Blood NEGATIVE (0-5) Vic/ul Urine Nitrite NEGATIVE (NEGATIVE) Urine Bilirubin NEGATIVE (NEGATIVE) Urine Urobilinogen NEGATIVE (0-1) mg/dL Ur Leukocyte Esterase NEGATIVE (NEGATIVE) Urine WBC (Auto) 0-2 (0-5) /HPF Urine RBC (Auto) NONE (0-2) /HPF U Hyaline Cast (Auto) 0-2 (0-2) /LPF U Epithel Cells (Auto) NONE SEEN (FEW) /HPF Urine Bacteria (Auto) RARE (NEGATIVE) /HPF Urine Mucus (Auto) SLIGHT (NEGATIVE) /HPF Urine Glucose NEGATIVE (NEGATIVE) mg/dL Influenza Type A Ag NEGATIVE (NEGATIVE) Influenza Type B Ag NEGATIVE (NEGATIVE) RSV (PCR) NEGATIVE (Negative) 02/13/18 02/13/18 02/13/18 Range/Units 17:25 17:25 17:25 WBC 5.7 (4.0-10.5) K/mm3 RBC 3.80 L (4.1-5.6) M/mm3 Hgb 12.2 L (12.5-18.0) gm/dl Hct 35.4 L (42-50) % MCV 93.2 (78-100) fl MCH 32.1 H (26-32) pg MCHC 34.5 (32-36) g/dl RDW 12.9 (11.5-14.0) % Plt Count 174 (150-450) K/mm3 MPV 12.0 H (6-9.5) fl Gran % 60.7 (36.0-66.0) % Eos # (Auto) 0.16 (0-0.5) Absolute Lymphs (auto) 1.46 (1.0-4.6) Absolute Monos (auto) 0.59 (0.0-1.3) Lymphocytes % 25.7 (24.0-44.0) % Monocytes % 10.4 (0.0-12.0) % Eosinophils % 2.8 (0.00-5.0) % Basophils % 0.4 (0.0-0.4) % Absolute Granulocytes 3.46 (1.4-6.9) Basophils # 0.02 (0-0.4) PT 12.6 (8.83-12.87) SECONDS INR 1.08 (0.8-3.0) APTT 26.1 (24.1-36.1) SECONDS Sodium 141 (137-145) mmol/L Potassium 4.0 (3.5-5.1) mmol/L Chloride 107 (98-107) mmol/L Carbon Dioxide 23 (22-30) mmol/L Anion Gap 14.8 (5-15) MEQ/L BUN 14 (9-20) mg/dL Creatinine 0.72 (0.66-1.25) mg/dL Estimated GFR > 60.0 ML/MIN Glucose 96 (74-106) mg/dL Lactic Acid (0.4-2.0) Calcium 9.5 (8.4-10.2) mg/dL Total Bilirubin 0.20 (0.2-1.3) mg/dL AST 32 (17-59) U/L ALT 16 (0-50) U/L Alkaline Phosphatase 57 (38-126) U/L Serum Total Protein 7.0 (6.3-8.2) g/dL Albumin 4.5 (3.5-5.0) g/dL Urine Color (YELLOW) Urine Appearance (CLEAR) Urine pH (5-6) Ur Specific [place] (1.005-1.025) Urine Protein (Negative) Urine Ketones (NEGATIVE) Urine Blood (0-5) Vic/ul Urine Nitrite (NEGATIVE) Urine Bilirubin (NEGATIVE) Urine Urobilinogen (0-1) mg/dL Ur Leukocyte Esterase (NEGATIVE) Urine WBC (Auto) (0-5) /HPF Urine RBC (Auto) (0-2) /HPF U Hyaline Cast (Auto) (0-2) /LPF U Epithel Cells (Auto) (FEW) /HPF Urine Bacteria (Auto) (NEGATIVE) /HPF Urine Mucus (Auto) (NEGATIVE) /HPF Urine Glucose (NEGATIVE) mg/dL Influenza Type A Ag (NEGATIVE) Influenza Type B Ag (NEGATIVE) RSV (PCR) (Negative) <AROLDO GAY - Last Filed: 02/13/18 19:11> - Progress Progress: improved Air Movement: fair <PRITESH RUSSO - Last Filed: 02/13/18 22:17> - Progress Progress Note: 02/13/18 19:11 Pt was signed out to Dr Russo (AROLDO GAY) 02/13/18 20:16 This is a 47-year-old white male with history of COPD, hyperlipidemia, high blood pressure, GERD, osteoarthritis, colitis, hepatitis, anxiety, depression who has had hepatitis in the past but apparently has been treated. He arrives with complaint of a cough for 3 days nonproductive he states he has pain in his lungs with coughing he has been wheezing short of breath no fevers no vomiting. Patient initially seen by Dr. Gay patient has received IV Rocephin, IV Zithromax, DuoNeb treatment. Patient is feeling better but still has some wheezes. Past medical history includes COPD, hyperlipidemia, high blood pressure, GERD, osteoarthritis, colitis, hepatitis C, anxiety, depression, stenosis of his heart. Patient apparently had been treated for hepatitis C. Past surgical history includes cardiac catheter, appendectomy, tonsillectomy, steroid back injections. Patient also with a pain stimulator in his back. Social history positive tobacco use. Physical examination well-developed owners white male he is alert oriented 3 pleasant cooperative to examination mild distress. Head is atraumatic normocephalic. Eyes PERRLA EOMI fundi are unremarkable. Ears TMs novak intact bilaterally. Lungs clear throat clear. Neck supple. Lungs scattered wheezes. Heart regular rate and rhythm without murmur. Abdomen soft nontender nondistended positive bowel sounds. Extremities full range of motion pulse equal symmetrical 2 over 4. Neuro cranial nerves II through XII are intact DTRs symmetrical 2 over 4 [place] Coma Scale 15. EKG sinus rhythm 91 bpm normal axis no acute ST or T wave changes are noted Chest x-ray patient with early infiltrate right lower lung base. Impression COPD with exacerbation. Right lower lobe pneumonia. Plan Will give patient 1 L of normal saline I ordered sputum culture blood and urine has been ordered by Dr. Bragg. Will give patient Solu-Medrol 125 IV. Patient already has received IV Zithromax and Rocephin. Anticipate possible second albuterol treatment. 02/13/18 20:49 Patient is now feeling much better. Patient with a few wheezes (rare scattered) Wants to go home. Patient is receiving IV normal saline and Zithromax at this time. Will plan discharge. Patient does have albuterol and nebulizers at home. Plan home Zithromax, tapering dose of prednisone. Patient advised to quit smoking. (PIRTESH RUSSO) <AROLDO GAY - Last Filed: 02/13/18 19:11> - Departure Time of Disposition: 20:50 Departure Disposition: Home Critical Care Time: No <PRITESH RUSSOLEY - Last Filed: 02/13/18 22:17> - Departure Clinical Impression: COPD with exacerbation, Shortness of breath Pneumonia Qualifiers: Pneumonia type: due to unspecified organism Laterality: right Lung location: lower lobe of lung Qualified Code(s): J18.1 - Lobar pneumonia, unspecified organism Condition: Fair Referrals: HANNA CAR MD [Primary Care Provider] - Instructions: Chronic Obstructive Pulmonary Disease Additional Instructions: Return home. Plenty of fluids. Zithromax as prescribed. Tapering dose of prednisone as prescribed. Use your inhalers as directed by your family doctor or albuterol every 4-6 hours as needed. Follow-up with your family doctor. Return for acute distress or for severe symptoms. Prescriptions: Azithromycin 250 mg [Zithromax 250 MG TABLET] 0 mg PO ZPACK #6 tablet
[2018-02-13 19:04] LABS: ALBUMIN 4.5 g/dL (3.5-5.0); ALKALINE PHOSPHATASE 57 U/L (38-126); ANION GAP 14.8 MEQ/L (5-15); BLOOD UREA NITROGEN 14 mg/dL (9-20); CHLORIDE 107 mmol/L (98-107); Calcium 9.5 mg/dL (8.4-10.2); Carbon Dioxide 23 mmol/L (22-30); Creatinine 1 0.72 mg/dL (0.66-1.25); Glucose 96 mg/dL (74-106); SGOT/AST 32 U/L (17-59); SGPT/ALT 16 U/L (0-50); SODIUM 141 mmol/L (137-145)
[2018-02-13 19:22] LABS: INR 1.08 (0.8-3.0)
[2018-02-13 19:23] VITALS: O2SAT 99
[2018-02-13 19:25] LABS: PTT 26.1 SECONDS (24.1-36.1)
[2018-02-13 19:36] LABS: INFLUENZA A NEGATIVE (NEGATIVE); INFLUENZA B NEGATIVE (NEGATIVE); RESPIRATORY SYNCTIAL VIRUS NEGATIVE (Negative)
[2018-02-13] MEDS ORDERED: ROCEPHIN 1 Gm-D5w 50 ml Bag** 1 G/50 ML IVPB IV ONE (19:54)
[2018-02-13] MEDS ORDERED: Zithromax 500 MG/ 250 ML NaCl Premix 500 MG/250 ML IVPB IV ONE (19:54)
[2018-02-13] MEDS ORDERED: Sodium Chloride 0.9% 1000 ML 1,000 ML IV STA (20:09)
[2018-02-13] MEDS ORDERED: solu-MEDROL 125 MG IV ONE (20:09)
[2018-02-13] MEDS ORDERED: solu-MEDROL 125 MG ONE (20:11)
[2018-02-13] MEDS ORDERED: Sodium Chloride 0.9% 1000 ML 1,000 ML ONE (20:11)
[2018-02-13 20:14] LABS: Appearance CLEAR (CLEAR); Bilirubin NEGATIVE (NEGATIVE); Blood NEGATIVE Ery/ul (0-5); Glucose NEGATIVE (NEGATIVE); Ketones NEGATIVE (NEGATIVE); Leukocyte Esterase NEGATIVE (NEGATIVE); Nitrite NEGATIVE (NEGATIVE); Protein,Urine Dip NEGATIVE (Negative); Specific Gravity 1.021 (1.005-1.025); Urobilinogen NEGATIVE mg/dL (0-1)
[2018-02-13 20:44] VITALS: PULSE 92
[2018-02-13 21:51] VITALS: BP 136/88
--- NOTE | 2018-02-14 08:39 | XRAY ---
Indication: Short of breath. Wheezing. Comparison: October 10, 2017. PA/lateral chest hyperinflated and clear again with incidental calcified granulomas. Heart and mediastinal structures remain within normal limits. Bony thorax intact again with spinal stimulator leads terminating mid thoracic level. Impression: Nonacute hyperinflated chest with chronic features.
== END 2018-02-13 21:50 | disposition home or self-care (01) ==
LOC: ED 17:11
DX: J44.1 Chronic obstructive pulmonary disease with (acute) exacerbation (principal); J18.9 Pneumonia, unspecified organism; E78.5 Hyperlipidemia, unspecified; I10 Essential (primary) hypertension; K21.9 Gastro-esophageal reflux disease without esophagitis; M19.90 Unspecified osteoarthritis, unspecified site; B19.20 Unspecified viral hepatitis C without hepatic coma; F41.9 Anxiety disorder, unspecified; F32.9 Major depressive disorder, single episode, unspecified; Z72.0 Tobacco use; Z79.899 Other long term (current) drug therapy
CPT/HCPCS: 36000; 36415; 71046; 80053; 81001; 83605; 85025; 85610; 85730; 87040; 87086; 87631; 93041; 94150; 94640; 96374; 99284; J0456; J0696; J2930; A9270-GY

== ENCOUNTER 2018-04-16 13:47 | Emergency (ER) | payer BC ==
[2018-04-16] MEDS ORDERED: Sodium Chloride 0.9% 1000 ML 1,000 ML IV STA (14:15)
[2018-04-16] MEDS ORDERED: ROCEPHIN 1 Gm-D5w 50 ml Bag** 1 G/50 ML IVPB IV STA (14:15)
[2018-04-16] MEDS ORDERED: Zithromax 500 MG/ 250 ML NaCl Premix 500 MG/250 ML IVPB IV STA (14:15)
[2018-04-16 14:35] LABS: BASOPHIL % 0.2 % (0.0-0.4); Basophil (Absolute #) 0.02 (0-0.4); Eosinophil % 0.8 % (0.00-5.0); Eosinophil (Absolute #) 0.08 (0-0.5); Granulocyte Absolute (ANC) 8.29 (1.4-6.9); Granulocytes % 80.2 % (36.0-66.0); Hematocrit 38.5 % (42-50); Hemoglobin 13.2 gm/dl (12.5-18.0); Lymphocyte (Absolute #) 1.38 (1.0-4.6); Lymphocytes % 13.3 % (24.0-44.0); Mean Cell Volume 93.4 fl (78-100); Mean Corpuscular Hgb Concent. 34.3 g/dl (32-36); Mean Platelet Volume 10.7 fl (6-9.5); Monocyte (Absolute #) 0.57 (0.0-1.3); Monocytes % 5.5 % (0.0-12.0); Platelet Count 257 K/mm3 (150-450); Red Blood Count 4.12 M/mm3 (4.1-5.6); Red Cell Distribution Width 12.4 % (11.5-14.0); White Blood Count 10.3 K/mm3 (4.0-10.5)
[2018-04-16 14:46] LABS: ALBUMIN 4.5 g/dL (3.5-5.0); ALKALINE PHOSPHATASE 78 U/L (38-126); BLOOD UREA NITROGEN 17 mg/dL (9-20); CHLORIDE 104 mmol/L (98-107); Calcium 9.4 mg/dL (8.4-10.2); Carbon Dioxide 25 mmol/L (22-30); Creatinine 1 0.79 mg/dL (0.66-1.25); Glucose 211 mg/dL (74-106); SGOT/AST 21 U/L (17-59); SGPT/ALT 17 U/L (0-50); SODIUM 142 mmol/L (137-145); Total Protein 7.8 g/dL (6.3-8.2)
[2018-04-16] MEDS ORDERED: Sodium Chloride 0.9% 1000 ML 1,000 ML ONE (14:56)
[2018-04-16] MEDS ORDERED: Zithromax 500 MG/ 250 ML NaCl Premix 500 MG/250 ML IVPB IV ONE (14:56)
[2018-04-16] MEDS ORDERED: ROCEPHIN 1 Gm-D5w 50 ml Bag** 1 G/50 ML IVPB IV ONE (14:57)
[2018-04-16 15:06] LABS: INFLUENZA A NEGATIVE (NEGATIVE); INFLUENZA B NEGATIVE (NEGATIVE); RESPIRATORY SYNCTIAL VIRUS NEGATIVE (Negative)
[2018-04-16] MEDS ORDERED: DUONEB 0.5-3 MG/3 ml Neb IH ONE ×2 (15:38→15:41)
[2018-04-16] MEDS ORDERED: solu-MEDROL 125 MG IV ONE (15:39)
[2018-04-16] MEDS ORDERED: solu-MEDROL 125 MG ONE (15:46)
--- NOTE | 2018-04-16 17:04 | ERPHSYRPT ---
- History of Present Illness Source: patient Exam Limitations: no limitations Patient Subjective Stated Complaint: states has had a cough and body aches for four days. skin w/d, color normal, resp easy. took aleve earlier today without relief. Triage Nursing Assessment: ambulated to room per self. skin w/d, color normal, resp nonlabored. occasional dry cough noted. 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 He presented to the ER with SOB, wheeze and cough. Pt states, that for several days he was in bed with myalgias, malaise and chills. Pt presented to the ED, as he did not improve with OTC meds. Pt denies N/V/D. No chest pain or palpitations. Timing/Duration: day(s) (4 days) Cough Quality/Degree: moderate, productive cough Possible Cause: frequent episodes, irritant gases exposure, smoke exposure Associated Symptoms: fever, chills, cough, muscle aches, nasal congestion, shortness of breath, wheezing Allergies/Adverse Reactions: No Known Drug Allergies Allergy (Verified 04/16/18 14:13) Home Medications: Omeprazole 40 mg PO DAILY 12/10/14 [History] Lisinopril [Zestril 40 mg] 40 mg PO DAILY 06/15/15 [History] Atorvastatin Calcium 20 mg DAILY 07/23/17 [History] Gabapentin 600 mg PO TID 09/13/17 [History] Hx Tetanus, Diphtheria Vaccination/Date Given: Yes Hx Influenza Vaccination/Date Given: No Hx Pneumococcal Vaccination/Date Given: No - Review of Systems Constitutional: Fever, Chills, Fatigue, Malaise, Night Sweats, Weakness Eyes: No Symptoms Ears, Nose, & Throat: No Symptoms Respiratory: Cough, Dyspnea, Wheezing Cardiac: No Chest Pain, No Edema, No Syncope Abdominal/Gastrointestinal: No Abdominal Pain, No Nausea, No Vomiting, No Diarrhea Genitourinary Symptoms: No Dysuria Musculoskeletal: Myalgias, No Back Pain, No Neck Pain Skin: No Rash Neurological: No Dizziness, No Focal Weakness, No Sensory Changes Psychological: No Symptoms Endocrine: No Symptoms All Other Systems: Reviewed and Negative - Past Medical History Pertinent Past Medical History: Yes Neurological History: No Pertinent History ENT History: No Pertinent History Cardiac History: High Cholesterol, Hypertension, Other Respiratory History: No Pertinent History Endocrine Medical History: Other Musculoskeletal History: Osteoarthritis GI Medical History: Colitis, GERD, Hepatitis History: No Pertinent History Psycho-Social History: Anxiety, Depression Male Reproductive Disorders: No Pertinent History Other Medical History: Stenosis of the heart,states hes hepatitis treatment and is hep free - Past Surgical History Past Surgical History: Yes Neuro Surgical History: No Pertinent History Cardiac: Cardiac Catheterization Respiratory: No Pertinent History Gastrointestinal: Appendectomy Genitourinary: No Pertinent History Musculoskeletal: Orthopedic Surgery Male Surgical History: No Pertinent History Other Surgical History: TONSILS. steroid back injections-. 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 - Social History Smoking Status: Current every day smoker How long have you smoked: 33 years Exposure to second hand smoke: Yes Alcohol Use: Socially Drug Use: none Patient Lives Alone: No Significant Family History: no pertinent family hx - Nursing Vital Signs Nursing Vital Signs: Initial Vital Signs Temperature 98.6 F 04/16/18 14:09 Pulse Rate 98 H 04/16/18 14:09 Respiratory Rate 16 04/16/18 14:09 Blood Pressure 145/99 04/16/18 14:09 O2 Sat by Pulse Oximetry 98 04/16/18 14:09 Pain Scale Pain Intensity 2 - Physical Exam General Appearance: mild distress Eye Exam: PERRL/EOMI, eyes nml inspection Ears, Nose, Throat Exam: normal ENT inspection, TMs normal, pharynx normal, moist mucous membranes Neck Exam: normal inspection, non-tender, supple, full range of motion Respiratory Exam: prolonged expirations, wheezing Cardiovascular Exam: regular rate/rhythm, normal heart sounds Gastrointestinal/Abdomen Exam: soft, No tenderness Back Exam: normal inspection, No CVA tenderness, No vertebral tenderness Extremity Exam: normal inspection, normal range of motion Neurologic Exam: alert, oriented x 3, cooperative, normal mood/affect, sensation nml, No motor deficits Skin Exam: normal color, warm, dry, No rash Lymphatic Exam: No adenopathy SpO2: 94 Oxygen Delivery: Room Air - Radiology Exams Chest X-ray Interpretation: Interpreted by me (Perihilar prominence. No effusions, edema, or infiltrate) Ordered Tests: Active Orders 24 hr Category Date Time Status EKG-ER Only STAT Care 04/16/18 14:15 Active IV Insertion STAT Care 04/16/18 14:15 Active CHEST 2 VIEWS (PA AND LAT) Stat Exams 04/16/18 14:16 Taken CBC W DIFF Stat Lab 04/16/18 14:30 Completed CMP Stat Lab 04/16/18 14:30 Completed Lactic Acid Stat Lab 04/16/18 14:15 Completed Peak Expiratory Flow Rate ONCE RT 04/16/18 15:43 Completed Respiratory Nebulizer STAT RT 04/16/18 15:39 Completed Respiratory Therapy Assessment DAILY RT 04/16/18 15:43 Completed Medication Summary Discontinued Medications Generic Name Dose Route Start Last Admin Trade Name Freq PRN Reason Stop Dose Admin Albuterol/Ipratropium 3 ml 04/16/18 15:38 04/16/18 15:44 Duoneb 0.5-3 Mg/3 Ml Neb IH 04/16/18 15:39 3 ml STAT ONE Administration Albuterol/Ipratropium Confirm 04/16/18 15:41 Duoneb 0.5-3 Mg/3 Ml Neb Administered 04/16/18 15:42 Dose 3 ml IH .STK-MED ONE Ceftriaxone Sodium/Dextrose 1 g in 50 mls @ 100 mls/hr 04/16/18 14:15 15:01 Rocephin 1 Gm-D5w 50 Ml Bag IV 04/16/18 14:44 100 ml/hr STAT STA 100 mls/hr Administration Sodium Chloride 1,000 mls @ 999 mls/hr 04/16/18 14:15 04/16/18 15:00 Sodium Chloride 0.9% 1000 Ml IV 04/16/18 15:15 999 mls/hr .Q1H1M STA Administration Azithromycin 500 mg in 250 mls @ 250 mls/hr 04/16/18 14:15 04/16/18 15:16 Zithromax 500 Mg/ 250 Ml Nacl Premix IV 04/16/18 15:14 250 ml/hr STAT STA 250 mls/hr Administration Azithromycin Confirm 04/16/18 14:56 Zithromax 500 Mg/ 250 Ml Nacl Premix Administered 04/16/18 14:57 Dose 500 mg in 250 mls @ ud IV .STK-MED ONE Sodium Chloride Confirm 04/16/18 14:56 Sodium Chloride 0.9% 1000 Ml Administered 04/16/18 14:57 Dose 1,000 mls @ ud .ROUTE .STK-MED ONE Ceftriaxone Sodium/Dextrose Confirm 04/16/18 14:57 Rocephin 1 Gm-D5w 50 Ml Bag Administered 04/16/18 14:58 Dose 1 g in 50 mls @ ud IV .STK-MED ONE Methylprednisolone Sodium Succinate 125 mg 04/16/18 15:39 04/16/18 15:47 Solu-Medrol 125 Mg IV 04/16/18 15:40 125 mg STAT ONE Administration Methylprednisolone Sodium Succinate Confirm 04/16/18 15:46 Solu-Medrol 125 Mg Administered 04/16/18 15:47 Dose 125 mg .ROUTE .STK-MED ONE Lab/Rad Data: Laboratory Result Diagrams 04/16/18 14:30 04/16/18 14:30 Laboratory Results 04/16/18 04/16/18 04/16/18 Range/Units 14:30 14:30 14:30 WBC 10.3 (4.0-10.5) K/mm3 RBC 4.12 (4.1-5.6) M/mm3 Hgb 13.2 (12.5-18.0) gm/dl Hct 38.5 L (42-50) % MCV 93.4 (78-100) fl MCH 32.0 (26-32) pg MCHC 34.3 (32-36) g/dl RDW 12.4 (11.5-14.0) % Plt Count 257 (150-450) K/mm3 MPV 10.7 H (6-9.5) fl Gran % 80.2 H (36.0-66.0) % Eos # (Auto) 0.08 (0-0.5) Absolute Lymphs (auto) 1.38 (1.0-4.6) Absolute Monos (auto) 0.57 (0.0-1.3) Lymphocytes % 13.3 L (24.0-44.0) % Monocytes % 5.5 (0.0-12.0) % Eosinophils % 0.8 (0.00-5.0) % Basophils % 0.2 (0.0-0.4) % Absolute Granulocytes 8.29 H (1.4-6.9) Basophils # 0.02 (0-0.4) Sodium 142 (137-145) mmol/L Potassium 4.0 (3.5-5.1) mmol/L Chloride 104 (98-107) mmol/L Carbon Dioxide 25 (22-30) mmol/L Anion Gap 16.0 H (5-15) MEQ/L BUN 17 (9-20) mg/dL Creatinine 0.79 (0.66-1.25) mg/dL Estimated GFR > 60.0 ML/MIN Glucose 211 H (74-106) mg/dL Lactic Acid (0.4-2.0) Calcium 9.4 (8.4-10.2) mg/dL Total Bilirubin 0.70 (0.2-1.3) mg/dL AST 21 (17-59) U/L ALT 17 (0-50) U/L Alkaline Phosphatase 78 (38-126) U/L Serum Total Protein 7.8 (6.3-8.2) g/dL Albumin 4.5 (3.5-5.0) g/dL Influenza Type A Ag NEGATIVE (NEGATIVE) Influenza Type B Ag NEGATIVE (NEGATIVE) RSV (PCR) NEGATIVE (Negative) Group A Strep Antibody NEGATIVE (NEGATIVE) 04/16/18 Range/Units 14:15 WBC (4.0-10.5) K/mm3 RBC (4.1-5.6) M/mm3 Hgb (12.5-18.0) gm/dl Hct (42-50) % MCV (78-100) fl MCH (26-32) pg MCHC (32-36) g/dl RDW (11.5-14.0) % Plt Count (150-450) K/mm3 MPV (6-9.5) fl Gran % (36.0-66.0) % Eos # (Auto) (0-0.5) Absolute Lymphs (auto) (1.0-4.6) Absolute Monos (auto) (0.0-1.3) Lymphocytes % (24.0-44.0) % Monocytes % (0.0-12.0) % Eosinophils % (0.00-5.0) % Basophils % (0.0-0.4) % Absolute Granulocytes (1.4-6.9) Basophils # (0-0.4) Sodium (137-145) mmol/L Potassium (3.5-5.1) mmol/L Chloride (98-107) mmol/L Carbon Dioxide (22-30) mmol/L Anion Gap (5-15) MEQ/L BUN (9-20) mg/dL Creatinine (0.66-1.25) mg/dL Estimated GFR ML/MIN Glucose (74-106) mg/dL Lactic Acid 1.4 (0.4-2.0) Calcium (8.4-10.2) mg/dL Total Bilirubin (0.2-1.3) mg/dL AST (17-59) U/L ALT (0-50) U/L Alkaline Phosphatase (38-126) U/L Serum Total Protein (6.3-8.2) g/dL Albumin (3.5-5.0) g/dL Influenza Type A Ag (NEGATIVE) Influenza Type B Ag (NEGATIVE) RSV (PCR) (Negative) Group A Strep Antibody (NEGATIVE) - Progress Progress: improved Air Movement: fair Progress Note: 04/16/18 17:05 Pt rceived Solu Medrol, Azithromycin and ceftriaxone, and Duo neb. He does feel improved, but is still very SOB, and wheezy. Pt states, can't be admitted to the hospital, because of his work. He is aware that he needs to get in pt treatment, but is not able to do it now. He would like to try out pt therapy first. Pt states, will come back to the ER, or his PCP, if no improvement. Blood Culture(s) Obtained: No Antibiotics given: Yes Will see patient in: office Counseled pt/family regarding: need for follow-up, smoking cessation - Departure Time of Disposition: 17:10 Departure Disposition: Home Clinical Impression: Bronchitis Condition: Fair Critical Care Time: No Referrals: HANNA CAR MD [Primary Care Provider] - Additional Instructions: If there is no improvement in your condition in 1-2 days, please come back to the ER or see your PCP. Prescriptions: Albuterol 8 gm Mdi Hfa [Ventolin Hfa MDI] 2 puff IH Q4-6HPRN PRN 17 Days hfa.aer.ad PRN Reason: Shortness Of Breath/Wheezing Budesonide/Formoterol Fumarate [Symbicort 160-4.5 Mcg Inhaler] 2 puff IH BID #1 hfa.aer.ad Levofloxacin [Levaquin] 1 tab PO DAILY #7 tablet Methylprednisolone Packet [Medrol Dosepack] 0 mg PO UD 6 Days #1 packet
[2018-04-16 17:09] VITALS: BP 129/84; PULSE 94
[2018-04-16 17:12] VITALS: O2SAT 94
--- NOTE | 2018-04-16 18:50 | XRAY ---
Indication: Possible pneumonia. Comparison: February 13, 2018. PA/lateral chest remains hyperinflated and clear again with left costophrenic angle blunting and incidental calcified granulomas. Heart is not enlarged. Bony thorax intact again with spinal stimulator leads terminating mid thoracic level. Impression: Stable nonacute hyperinflated chest with chronic features.
== END 2018-04-16 17:26 | disposition home or self-care (01) ==
LOC: ED 13:47
DX: J40 Bronchitis, not specified as acute or chronic (principal); Z79.899 Other long term (current) drug therapy; F17.200 Nicotine dependence, unspecified, uncomplicated
CPT/HCPCS: 36000; 36415; 71046; 80053; 83605; 85025; 87631; 87651; 93005; 94150; 94640; 96360; 96361; 96365; 96368; 96374; 96375; 99285; J0456; J0696; J2930; A9270-GY

== ENCOUNTER 2019-01-29 15:19 | Emergency (ER) | payer BC ==
[2019-01-29] MEDS ORDERED: DECADRON 10MG INJ. IM ONE (15:31)
[2019-01-29] MEDS ORDERED: TORAdol 30 mg Injection IM ONE (15:31)
[2019-01-29] MEDS ORDERED: Norflex 60 MG/2 ML IM ONE (15:31)
[2019-01-29] MEDS ORDERED: NORCO 5/325 MG PO ONE (15:31)
--- NOTE | 2019-01-29 15:35 | ERPHSYRPT ---
- History of Present Illness Time Seen by Provider: 01/29/19 15:26 Source: patient, family, EMS, old records Exam Limitations: no limitations Physician History: PT IS A 48 Y/O MALE PRESENTS VIA EMS C/O LOW BACK PAIN. PT STATES HE COUGHED AND FELT A POP IN HIS LOW BACK. SHARP NON RADIATING LBP. MILD TINGLING RIGHT FOOT. NO SCIATIC PAIN. NO INCONTINENCE. NO DYSURIA/HEMATURIA. NO FALL. NO FOOT DROP OR DRAG. HAS NERVE STIMULATOR HAS CHRONIC BACK AND DISC ISSUES NO HEAVY LIFTING. HAS BEEN COUGHING AND WHEEZING X 2-3 DAYS FEELS HE HAS BRONCHITIS PMHX CHRONIC BACK PAIN, COPD PSHX STIMULATOR MEDS REVIEWED ALL NKDA +TOB + ETOH OCC DENIES ILLICITS OR IVDU FHX NEG [employer] EMPLOYED Allergies/Adverse Reactions: No Known Drug Allergies Allergy (Verified 01/29/19 15:33) Home Medications: Omeprazole 40 mg PO DAILY 12/10/14 [History] Lisinopril [Zestril 40 mg] 40 mg PO DAILY 06/15/15 [History] Atorvastatin Calcium 20 mg DAILY 07/23/17 [History] Gabapentin 600 mg PO TID 09/13/17 [History] Hx Tetanus, Diphtheria Vaccination/Date Given: Yes Hx Influenza Vaccination/Date Given: No Hx Pneumococcal Vaccination/Date Given: No - Review of Systems Constitutional: No Symptoms, No Fever, No Chills, No Fatigue, No Lethargy, No Malaise, No Night Sweats, No Weakness, No Weight Loss Eyes: No Symptoms, No Discharge, No Eye Pain, No Eye Redness, No Itchy, No Photophobia, No Tearing, No Vision Changes, No Double Vision, No Foreign Body Sensation Ears, Nose, & Throat: No Symptoms, No Ear Pain, No Ear Discharge, No Hearing Changes, No Tinnitus, No Nose Congestion, No Nose Discharge, No Epistaxis, No Mouth Pain, No Mouth Swelling, No Throat Pain, No Throat Swelling, No Hoarse, No Painful Swallowing, No Stridor Respiratory: No Symptoms, No Cough, No Cyanosis, No Dyspnea, No Dyspnea on Exertion ([place]), No Stridor, No Wheezing Cardiac: No Symptoms, No Chest Pain, No Edema, No Palpitations, No Syncope, No Orthopnea Abdominal/Gastrointestinal: No Symptoms, No Abdominal Pain, No Nausea, No Vomiting, No Diarrhea, No Constipation, No Hematemesis, No Hematochezia, No Melena, No Dysphagia, No Appetite Changes Genitourinary Symptoms: No Symptoms, No Dysuria, No Frequency, No Hematuria, No Hesitancy, No Incontinence, No Urgency, No Urinary Retention, No Flank Pain Musculoskeletal: No Symptoms, Back Pain, No Arthralgias, No Neck Pain, No Deformity, No Fall, No Injury, No Joint Redness, No Joint Pain, No Joint Swelling, No Myalgias Skin: No Symptoms, No Cellulitis, No Decubiti, No Induration, No Pruritis, No Rash, No Skin Lesions, No Dryness Neurological: No Symptoms, No Dizziness, No Focal Weakness, No Gait Changes, No Headache, No Irritability, No Lethargy, No Paralysis, No Parasthesia, No Seizure , No Sensory Changes, No Speech Changes, No Tics, No Tremors, No Vertigo Psychological: No Symptoms, No Alcohol Abuse, No Drug Abuse, No Anxiety, No Depression, No Suicidal Ideations, No Homicidal Ideations, No Emotional Lability , No Hallucinations, No Memory Loss, No Mood Changes Endocrine: No Symptoms, No Polyuria, No Polydipsia, No Hair Changes, No Cold Intolerance, No Excessive Sweating, No Goiter Hematologic/Lymphatic: No Symptoms, No Anemia, No Blood Clots, No Easy Bleeding , No Gum Bleeding, No Easy Bruising, No Adenopathy Immunological/Allergic: No Symptoms All Other Systems: Reviewed and Negative - Past Medical History Pertinent Past Medical History: Yes Neurological History: No Pertinent History ENT History: No Pertinent History Cardiac History: High Cholesterol, Hypertension, Other Respiratory History: No Pertinent History Endocrine Medical History: Other Musculoskeletal History: Osteoarthritis GI Medical History: Colitis, GERD, Hepatitis History: No Pertinent History Psycho-Social History: Anxiety, Depression Male Reproductive Disorders: No Pertinent History Other Medical History: Stenosis of the heart,states hes hepatitis treatment and is hep free - Past Surgical History Past Surgical History: Yes Neuro Surgical History: No Pertinent History Cardiac: Cardiac Catheterization Respiratory: No Pertinent History Gastrointestinal: Appendectomy Genitourinary: No Pertinent History Musculoskeletal: Orthopedic Surgery Male Surgical History: No Pertinent History Other Surgical History: TONSILS. steroid back injections-. 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 - Social History Smoking Status: Current every day smoker How long have you smoked: 33 years Exposure to second hand smoke: Yes Alcohol Use: Socially Drug Use: none Patient Lives Alone: No Significant Family History: no pertinent family hx - Nursing Vital Signs Nursing Vital Signs: Initial Vital Signs Temperature 98 F 01/29/19 15:21 Pulse Rate 86 01/29/19 15:21 Respiratory Rate 18 01/29/19 15:21 Blood Pressure 171/107 01/29/19 15:21 O2 Sat by Pulse Oximetry 98 01/29/19 15:21 Pain Scale Pain Intensity [Back] 6 Pain Intensity 5 - Physical Exam General Appearance: no apparent distress, mild distress, alert Eye Exam: PERRL/EOMI, eyes nml inspection, other (fundi normal salvador), No scleral icterus, No pale conjunctivae, No photophobia, No EOM palsy/anisocoria Ears, Nose, Throat Exam: normal ENT inspection, TMs normal, pharynx normal, TM abnormal (L), other (uvula midline, floor of mouth soft), No moist mucous membranes, No dry mucous membranes, No TM abnormal (R), No pharyngeal erythema, No tonsillar exudate Neck Exam: normal inspection, non-tender, supple, full range of motion, No meningismus, No mass, No Brudzinski, No Kernig's, No carotid bruit, No JVD, No limited range of motion, No lymphadenopathy, No midline tenderness, No thyromegaly Respiratory Exam: normal breath sounds, lungs clear, airway intact, diminished breath sounds, wheezing, No chest tenderness, No respiratory distress, No accessory muscle use, No prolonged expirations, No crackles/rales, No rhonchi, No stridor, No pleural rub Cardiovascular Exam: regular rate/rhythm, normal heart sounds, normal peripheral pulses, capillary refill <2 sec, No murmur, No friction rub, No gallop, No tachycardia, No bradycardia, No irregular, No capillary refill 2-3 sec, No capillary refill >3 sec, No edema, No pulse deficit Gastrointestinal/Abdomen Exam: soft, normal bowel sounds, No tenderness, No distention, No mass, No guarding, No ecchymosis, No pulsatile mass, No rebound, No hernia, No hepatomegaly, No organomegaly, No splenomegaly, No bruit Male Genitalia Exam: normal genitalia Rectal Exam: deferred Back Exam: normal inspection, normal range of motion, vertebral tenderness (L3/4 ), decreased range of motion, muscle spasm, other ( slr salvador@25 , no sacral anesthesia, dtr 2/4 salvador patella), No CVA tenderness, No rash, No point tenderness Extremity Exam: normal inspection, normal range of motion, pelvis stable, No amputations, No contusions, No calf tenderness, No deformities, No lacerations, No parasthesia, No paralysis, No inflammation, No joint swelling, No limited range of motion, No pedal edema, No swelling, No tenderness Neurologic Exam: alert, oriented x 3, cooperative, mmd unit teacher II-XII nml as tested, normal mood/affect, nml cerebellar function, nml station & gait, sensation nml, No motor deficits, No sensory deficit, No disoriented, No confusion, No agitation, No uncooperative, No intoxicated appearance, No depressed mood/affect , No motor weakness, No facial droop, No slurred speech, No aphasia, No dysarthria, No abnormal gait, No abnormal cerebellar tests, No abnormal mmd unit teacher II- XII, No EOM palsy Skin Exam: normal color, warm, dry, No rash, No petechiae, No jaundice, No abrasion, No cyanosis, No diaphoresis, No decubitus, No embolic lesions, No ecchymosis, No jaundice, No laceration, No mottled, No pale Lymphatic Exam: No adenopathy SpO2 Interpretation: normal O2 Delivery: Room Air - Course Nursing assessment & vital signs reviewed: Yes Ordered Tests: Active Orders 24 hr Category Date Time Status CHEST 2 VIEWS (PA AND LAT) Stat Exams 01/29/19 15:55 Completed LUMBAR SPINE W/O [CT] Stat Exams 01/29/19 15:32 Completed UA W/RFX UR CULTURE Stat Lab 01/29/19 17:50 Completed Peak Expiratory Flow Rate ONCE RT 01/29/19 16:07 Active Respiratory Therapy Assessment DAILY RT 01/29/19 16:07 Active Medication Summary Discontinued Medications Generic Name Dose Route Start Last Admin Trade Name Freq PRN Reason Stop Dose Admin Hydrocodone Bitart/Acetaminophen 1 tab 01/29/19 15:31 01/29/19 15:59 [place] 5/325 Mg PO 01/29/19 15:32 1 tab STAT ONE Administration Hydrocodone Bitart/Acetaminophen Confirm 01/29/19 15:40 [place] 5/325 Mg Administered 01/29/19 15:41 Dose 1 tab .ROUTE .STK-MED ONE Albuterol/Ipratropium 3 ml 01/29/19 15:36 01/29/19 16:06 Duoneb 0.5-3 Mg/3 Ml Neb IH 01/29/19 15:37 3 ml STAT ONE Administration Albuterol/Ipratropium Confirm 01/29/19 15:46 Duoneb 0.5-3 Mg/3 Ml Neb Administered 01/29/19 15:47 Dose 3 ml IH .STK-MED ONE Dexamethasone Sodium Phosphate 10 mg 01/29/19 15:31 01/29/19 15:58 Decadron 10mg Inj. IM 01/29/19 15:32 10 mg STAT ONE Administration Dexamethasone Sodium Phosphate Confirm 01/29/19 15:40 Decadron 10mg Inj. Administered 01/29/19 15:41 Dose 10 mg .ROUTE .STK-MED ONE Ketorolac Tromethamine 30 mg 01/29/19 15:31 01/29/19 15:59 Toradol 30 Mg Injection IM 01/29/19 15:32 30 mg STAT ONE Administration Ketorolac Tromethamine Confirm 01/29/19 15:40 Toradol 30 Mg Injection Administered 01/29/19 15:41 Dose 30 mg .ROUTE .STK-MED ONE Lidocaine 1 patch 01/29/19 17:00 01/29/19 17:05 Lidoderm Patch 5% TOP 01/29/19 17:01 1 patch NOW ONE Administration Morphine Sulfate 4 mg 01/29/19 16:50 01/29/19 17:04 Morphine Sulfate 4 Mg Inj IM 01/29/19 16:51 4 mg STAT ONE Administration Morphine Sulfate Confirm 01/29/19 17:03 Morphine Sulfate 4 Mg Inj Administered 01/29/19 17:04 Dose 4 mg .ROUTE .STK-MED ONE Orphenadrine Citrate 60 mg 01/29/19 15:31 01/29/19 15:58 Norflex 60 Mg/2 Ml IM 01/29/19 15:32 60 mg STAT ONE Administration Orphenadrine Citrate Confirm 01/29/19 15:40 Norflex 60 Mg/2 Ml Administered 01/29/19 15:41 Dose 60 mg .ROUTE .STK-MED ONE Lab/Rad Data: Laboratory Results 01/29/19 Range/Units 17:50 Urine Color YELLOW (YELLOW) Urine Appearance CLEAR (CLEAR) Urine pH 5.0 (5-6) Ur Specific [place] 1.014 (1.005-1.025) Urine Protein NEGATIVE (Negative) Urine Ketones NEGATIVE (NEGATIVE) Urine Blood NEGATIVE (0-5) Vic/ul Urine Nitrite NEGATIVE (NEGATIVE) Urine Bilirubin NEGATIVE (NEGATIVE) Urine Urobilinogen NEGATIVE (0-1) mg/dL Ur Leukocyte Esterase NEGATIVE (NEGATIVE) Urine WBC (Auto) NONE (0-5) /HPF Urine RBC (Auto) NONE (0-2) /HPF U Epithel Cells (Auto) NONE (FEW) /HPF Urine Bacteria (Auto) NONE (NEGATIVE) /HPF Urine Mucus (Auto) SLIGHT (NEGATIVE) /HPF Urine Culture Reflexed NO (NO) Urine Glucose NEGATIVE (NEGATIVE) mg/dL - Progress Progress: improved Progress Note: 01/29/19 16:42 CT LSP WITH L3-S1 BROAD BASED DISC BULGE WITH L5-S1 FORAMINAL STENOSIS OTHERWISE NAD NO FX. PT STATES MINIMAL RELEASE WITH INTERVENTIONS. 01/29/19 16:44 ER PRELIM CXR IS NAD 01/29/19 16:49 PT STATES NO IMPROVEMENT WITH INTERVENTIONS. IF I AM NOT GOING TO SEND HIM HOME WITH NARCOTICS HE WANTS TO GET ADMITTED. I DO NOT FIND OBJECTIVE REASON FOR OUTPATIENT OPIATE PAIN MEDS. WILL GIVE ONE DOSE OF MORPHINE HERE, CHECK UA AND DC. 01/29/19 16:50 REQUEST RN SEND UA 01/29/19 17:47 REQUEST RN SEND UA 01/29/19 18:20 CALL TO LAB TALK WITH DARIO STATES URINE SHOULD BE COMING OFF NOW. Counseled pt/family regarding: drug and/or alcohol abuse, lab results, diagnosis , need for follow-up, rad results, smoking cessation - Departure Departure Disposition: Home, Left without being seen Clinical Impression: Acute exacerbation of chronic low back pain, Bulging of lumbar intervertebral disc Condition: Good Critical Care Time: No Referrals: HANNA CAR MD [Primary Care Provider] - Instructions: Low Back Pain (DC) Additional Instructions: TO ER IF DRAGGING YOUR FOOT BEHIND YOU CANNOT FEEL YOUR TOES FEVER OVER 102 INTRACTABLE VOMITING INCONTINENT OF BOWEL OR BLADDER ABDOMINAL PAIN CANNOT URINATE TAKE MEDICINES DIRECTED. DO NOT DRINK ALCOHOL DRIVE OR OPERATE HEAVY MACHINERY WHILE USING NORFLEX SINCE THIS WILL MAKE YOU TIRED ICE YOUR BACK NO HEAVY LIFTING OVER 10 LBS FOR 72 HOURS PLEASE FOLLOW UP WITH YOUR DOCTOR IN 2-3 DAYS FOR RE-EVALUATION AND DEFINITIVE CARE Prescriptions: Lidocaine HCl 5% Patch [Lidoderm Patch 5%] 1 patch TOP DAILY #5 patch Methylprednisolone Packet [Medrol Dosepack] 4 mg PO UD #30 packet Naproxen 500 mg [Naprosyn 500 MG] 500 mg PO BID #10 tablet Orphenadrine Citrate 100 mg [Norflex 100 MG Tablet] 100 mg PO BID #10 tab
[2019-01-29] MEDS ORDERED: DUONEB 0.5-3 MG/3 ml Neb IH ONE ×2 (15:36→15:46)
[2019-01-29] MEDS ORDERED: Norflex 60 MG/2 ML ONE (15:40)
[2019-01-29] MEDS ORDERED: DECADRON 10MG INJ. ONE (15:40)
[2019-01-29] MEDS ORDERED: NORCO 5/325 MG ONE (15:40)
[2019-01-29] MEDS ORDERED: TORAdol 30 mg Injection ONE (15:40)
--- NOTE | 2019-01-29 16:37 | XRAY ---
Indication: Low back pain with right foot numbness. Multiple contiguous axial images obtained through the lumbar spine. Two-dimensional sagittal and coronal reformatted images obtained. Comparison: None. There is a lumbar radiograph September 13, 2017. Axial images negative for acute fracture, suspicious bony lesions, or spinal canal stenosis. There are mild L3-S1 broad-based disc bulge with bilateral foraminal narrowing. Left L5-S1 foraminal stenosis due to broad-based disc osteophyte complex. Facets are symmetric. Epidural stimulator leads originate at the T12-L1 level extending superiorly with tips not included in the [id number]. Sagittal and coronal reformatted images images normal lumbar alignment with vertebral body heights/disc space is maintained. No acute compression fracture or subluxation. Visualized noncontrasted soft tissues demonstrates calcified splenic granulomas and aortoiliac calcifications. Impression: 1. L3-S1 broad-based disc bulge with left L5-S1 foraminal stenosis. No large disc herniation or canal stenosis. 2. Remaining CT lumbar spine is negative. 3. Partially visualized epidural stimulator leads and scattered arteriosclerotic disease similar appearance to previous lumbar radiograph. CTDI 48.23
--- NOTE | 2019-01-29 16:49 | XRAY ---
Indication: Cough. Comparison: April 16, 2018. PA/lateral chest again hyperinflated and clear with stable left costophrenic angle blunting and scattered calcified granulomas. Heart and mediastinal structures within normal limits. Bony thorax intact again with spinal stimulator leads terminating T7 level. Impression: Stable nonacute hyperinflated chest with chronic features.
[2019-01-29] MEDS ORDERED: MORPHINE SULFATE 4 MG INJ IM ONE (16:50)
[2019-01-29] MEDS ORDERED: Lidoderm Patch 5% TOP ONE (17:00)
[2019-01-29] MEDS ORDERED: MORPHINE SULFATE 4 MG INJ ONE (17:03)
[2019-01-29 18:13] LABS: Appearance CLEAR (CLEAR); Bilirubin NEGATIVE (NEGATIVE); Blood NEGATIVE Ery/ul (0-5); Glucose NEGATIVE (NEGATIVE); Ketones NEGATIVE (NEGATIVE); Leukocyte Esterase NEGATIVE (NEGATIVE); Mucus SLIGHT /HPF (NEGATIVE); Nitrite NEGATIVE (NEGATIVE); Protein,Urine Dip NEGATIVE (Negative); Specific Gravity 1.014 (1.005-1.025); Urobilinogen NEGATIVE mg/dL (0-1)
[2019-01-29 18:17] VITALS: BP 139/92; PULSE 80; O2SAT 96
== END 2019-01-29 18:50 | disposition home or self-care (01) ==
LOC: ED 15:19
DX: M51.26 Other intervertebral disc displacement, lumbar region (principal)
CPT/HCPCS: 71046; 72131; 81001; 94150; 94640; 96372; 99284; J1100; J1885; J2270; J2360; A9270-GY

== ENCOUNTER 2020-11-05 21:44 | Emergency (ER) | payer BC ==
--- NOTE | 2020-11-05 21:49 | ERPHSYRPT ---
- History of Present Illness Time Seen by Provider: 11/05/20 21:49 Physician History: Patient was triaged. Emergency department full than approximately 1 hour and 10 minutes I went in to see the patient to repair his laceration, and he left without being seen by me. Allergies/Adverse Reactions: No Known Drug Allergies Allergy (Verified 11/05/20 21:50) Home Medications: Omeprazole 40 mg PO DAILY 12/10/14 [History] lisinopriL [Zestril 40 mg] 40 mg PO DAILY 06/15/15 [History] Atorvastatin Calcium 20 mg DAILY 07/23/17 [History] Gabapentin 600 mg PO TID 09/13/17 [History] Hx Tetanus, Diphtheria Vaccination/Date Given: Yes Hx Influenza Vaccination/Date Given: No Hx Pneumococcal Vaccination/Date Given: No - Past Medical History Pertinent Past Medical History: Yes Neurological History: No Pertinent History ENT History: No Pertinent History Cardiac History: High Cholesterol, Hypertension, Other Respiratory History: No Pertinent History Endocrine Medical History: Other Musculoskeletal History: Osteoarthritis GI Medical History: Colitis, GERD, Hepatitis History: No Pertinent History Psycho-Social History: Anxiety, Depression Male Reproductive Disorders: No Pertinent History Other Medical History: Stenosis of the heart,states hes hepatitis treatment and is hep free - Past Surgical History Past Surgical History: Yes Neuro Surgical History: No Pertinent History Cardiac: Cardiac Catheterization Respiratory: No Pertinent History Gastrointestinal: Appendectomy Genitourinary: No Pertinent History Musculoskeletal: Orthopedic Surgery Male Surgical History: No Pertinent History Other Surgical History: TONSILS. steroid back injections-. 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 - Social History Smoking Status: Current every day smoker How long have you smoked: 33 years Exposure to second hand smoke: Yes Alcohol Use: Socially Drug Use: none Patient Lives Alone: No Significant Family History: no pertinent family hx - Nursing Vital Signs Nursing Vital Signs: Initial Vital Signs Temperature 98.5 F 11/05/20 21:45 Pulse Rate 91 H 11/05/20 21:45 Respiratory Rate 16 11/05/20 21:45 Blood Pressure 124/75 11/05/20 21:45 O2 Sat by Pulse Oximetry 98 11/05/20 21:45 Pain Scale Pain Intensity 6 Ordered Tests: Medication Summary Discontinued Medications Generic Name Dose Route Start Last Admin Trade Name Freq PRN Reason Stop Dose Admin Lidocaine HCl Confirm 11/05/20 22:47 Xylocaine 1% Hcl 20 Ml Mdv Administered 11/05/20 22:48 Dose 1 ml .ROUTE .STK-MED ONE - Departure Departure Disposition: Left without being seen Clinical Impression: Finger laceration Condition: Stable Critical Care Time: No Referrals: HANNA CAR MD [Primary Care Provider] -
[2020-11-05 22:02] VITALS: BP 124/75; PULSE 91; O2SAT 98
[2020-11-05] MEDS ORDERED: XYLOCAINE 1% HCL 20 ML MDV ONE (22:47)
== END 2020-11-05 23:00 | disposition left against medical advice (07) ==
LOC: ED 21:44
DX: S61.219A Laceration without foreign body of unspecified finger without damage to nail, initial encounter (principal)
CPT/HCPCS: 99283; G0463

== ENCOUNTER 2021-05-24 18:24 | Emergency (ER) | payer BC, OTHER ==
[2021-05-24 18:34] VITALS: BP 153/85
--- NOTE | 2021-05-24 18:51 | ERPHSYRPT ---
- History of Present Illness Source: patient Exam Limitations: no limitations Patient Subjective Stated Complaint: Pt states "I was at work and I was pushing a palate lucas and hit a leg of a table and my wrist right twisted." Triage Nursing Assessment: Pt presented alert and oriented X 3, skin wpd Pt ambulates with an upright steady gait, able to speak in clear full sentences pt right wrist tender to touch and painful, no bruising or swelling noted. Physician History: Pt jammed R wrist when pallet lucas hit an object. Pt is R handed and denies other/previous injury. Occurred: this afternoon Method of Injury: other (Jammed when pallet lucas hit an object) Quality: aching Severity of Pain-Max: moderate Severity of Pain-Current: moderate Extremities Pain Location: wrist: right Modifying Factors: Improves With: movement Associated Symptoms: none Allergies/Adverse Reactions: No Known Drug Allergies Allergy (Verified 11/05/20 21:50) Home Medications: Omeprazole 40 mg PO DAILY 12/10/14 [History] lisinopriL [Zestril 40 mg] 40 mg PO DAILY 06/15/15 [History] Atorvastatin Calcium 20 mg DAILY 07/23/17 [History] Gabapentin 600 mg PO TID 09/13/17 [History] Hx Tetanus, Diphtheria Vaccination/Date Given: Yes Hx Influenza Vaccination/Date Given: No Hx Pneumococcal Vaccination/Date Given: No Immunizations Up to Date: Yes Travel Risk - International Travel Have you traveled outside of the country in past 3 weeks: No - Coronavirus Screening Are you exhibiting any of the following symptoms?: No Close contact with a COVID-19 positive Pt in past 14-21 Days: No - Vaccine Status Have you recieved a Covid-19 vaccination: No - Review of Systems Constitutional: No Symptoms Eyes: No Symptoms Ears, Nose, & Throat: No Symptoms Respiratory: No Symptoms Cardiac: No Symptoms Abdominal/Gastrointestinal: No Symptoms Genitourinary Symptoms: No Symptoms Skin: No Symptoms Neurological: No Symptoms Psychological: No Symptoms Endocrine: No Symptoms Hematologic/Lymphatic: No Symptoms Immunological/Allergic: No Symptoms - Past Medical History Pertinent Past Medical History: Yes Neurological History: No Pertinent History ENT History: No Pertinent History Cardiac History: High Cholesterol, Hypertension, Other Respiratory History: No Pertinent History Endocrine Medical History: Other Musculoskeletal History: Osteoarthritis GI Medical History: Colitis, GERD, Hepatitis History: No Pertinent History Psycho-Social History: Anxiety, Depression Male Reproductive Disorders: No Pertinent History Other Medical History: Stenosis of the heart,states hes hepatitis treatment and is hep free - Past Surgical History Past Surgical History: Yes Neuro Surgical History: No Pertinent History Cardiac: Cardiac Catheterization Respiratory: No Pertinent History Gastrointestinal: Appendectomy Genitourinary: No Pertinent History Musculoskeletal: Orthopedic Surgery Male Surgical History: No Pertinent History Other Surgical History: TONSILS. steroid back injections-. 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 - Social History Smoking Status: Current every day smoker How long have you smoked: 33 years Exposure to second hand smoke: Yes Alcohol Use: Socially Drug Use: none Patient Lives Alone: No Significant Family History: no pertinent family hx - Nursing Vital Signs Nursing Vital Signs: Initial Vital Signs Temperature 98.5 F 05/24/21 18:29 Pulse Rate 88 05/24/21 18:29 Respiratory Rate 20 05/24/21 18:29 Blood Pressure 153/85 05/24/21 18:29 O2 Sat by Pulse Oximetry 99 05/24/21 18:29 Pain Scale Pain Intensity 7 Hypertensive - Physical Exam General Appearance: no apparent distress Eyes, Ears, Nose, Throat Exam: normal ENT inspection, TMs normal, pharynx normal, moist mucous membranes Neck Exam: normal inspection, non-tender, supple, full range of motion, No Brudzinski, No Kernig's, No meningismus Cardiovascular/Respiratory Exam: normal breath sounds, regular rate/rhythm, heart sounds normal Abdominal Exam: non-tender, soft, no organomegaly Back Exam: normal inspection, normal range of motion, No CVA tenderness Shoulder Exam: normal inspection Elbow/Forearm Exam: normal inspection Wrist Exam: pain (R dorsal wrist TTP/Pain w extension/Good radial pulse, distal sensation, and capillary return) Hand Exam: normal inspection, non-tender, no evidence of injury Neuro/Tendon Exam: normal sensation, normal motor functions, normal tendon functions, responds to pain, no evidence tendon injury Mental Status Exam: alert, oriented x 3, cooperative Skin Exam: normal color, warm, dry SpO2 Interpretation: normal SpO2: 99 O2 Delivery: Room Air - Course Nursing assessment & vital signs reviewed: Yes - Radiology Exams Wrist X-ray Interpretation: Interpreted by me (R wrist neg per ER read) Ordered Tests: Active Orders 24 hr Category Date Time Status Scooter Bandage Application -[facility] STAT Care 05/24/21 19:14 Completed WRIST (MIN 3 VIEWS) Stat Exams 05/24/21 19:13 Taken - Progress Progress: improved Progress Note: 05/24/21 19:15 Pt refused pain meds Scooter wrap R wrist per nursing/NVI Counseled pt/family regarding: diagnosis, need for follow-up, rad results - Departure Departure Disposition: Home Clinical Impression: Sprain of wrist, right Condition: Stable Critical Care Time: No Referrals: HANNA CAR MD [Primary Care Provider] - Follow up/PCP as directed Instructions: Wrist Sprain (DC) Additional Instructions: Ice for 12-24 hours Motrin/Tylenol for pain Scooter wrap for 3-4 days Follow up with company/Family MD Forms: Work/School Release Form
[2021-05-24 19:35] VITALS: PULSE 96
[2021-05-24 22:34] VITALS: O2SAT 99
--- NOTE | 2021-05-25 08:49 | XRAY ---
Indication: Pain following injury. Comparison: None 3 view right wrist obtained. No bony, articular, or soft tissue abnormalities.
== END 2021-05-24 19:33 | disposition home or self-care (01) ==
LOC: ED 18:24
DX: S63.501A Unspecified sprain of right wrist, initial encounter (principal); W23.1XXA Caught, crushed, jammed, or pinched between stationary objects, initial encounter; Y99.0 Civilian activity done for income or pay; E78.5 Hyperlipidemia, unspecified; I10 Essential (primary) hypertension; K21.9 Gastro-esophageal reflux disease without esophagitis; Z72.0 Tobacco use
CPT/HCPCS: 73110; 99283

== ENCOUNTER 2021-11-03 19:07 | Emergency (ER) | payer OTHER ==
[2021-11-03] MEDS ORDERED: Zofran 4 MG/2 ML VIAL IV ONE (19:36)
[2021-11-03] MEDS ORDERED: MORPHINE SULFATE 4 MG INJ IV ONE (19:36)
[2021-11-03] MEDS ORDERED: BABY ASPIRIN 81 MG CHEW PO ONE (19:36)
--- NOTE | 2021-11-03 19:39 | ERPHSYRPT ---
- History of Present Illness Time Seen by Provider: 11/03/21 19:15 Historian: patient Exam Limitations: no limitations Patient Subjective Stated Complaint: pt states while at work he began having lt side chest pain. denies radiation. states tingling in lt hand. Triage Nursing Assessment: pt alert and oriented, answers questions approp. pt ambulatory with steady gait noted. respirations nonlabored with lungs cta bilat. skin warm and dry. heart rate 64 on monitor, sinus rhythm. Physician History: 51-year-old male presented to the ER with chief complaint of sudden onset left- sided chest pain dull aching, radiating to the left arm, moderate intensity without any significant aggravating or relieving factors and associated with mild shortness of breath. Denies any history of CAD in the past. Denies any cough fever or chills/sick contact. Timing/Duration: hour(s) (2), constant, sudden, worse Activities at Onset: activity Quality: dullness, sharpness Location: substernal Chest Pain Radiation: arm Severity of Pain-Max: moderate Severity of Pain-Current: moderate Modifying Factors: Improves With: nothing Associated Symptoms: shortness of breath Prior Chest Pain/Cardiac Workup: no prior cardiac workup Nitro Today/Relief: no nitro taken today Aspirin Treatment Today: 81 mg x 1 Allergies/Adverse Reactions: No Known Drug Allergies Allergy (Verified 11/03/21 19:21) Home Medications: lisinopriL [Zestril 40 mg] 40 mg PO DAILY 06/15/15 [History] Buspirone HCl 5 mg [Buspar 5 mg] 10 mg PO TID 11/03/21 [History] Escitalopram Oxalate [Lexapro] 10 mg PO DAILY 11/03/21 [History] Hx Tetanus, Diphtheria Vaccination/Date Given: Yes Hx Influenza Vaccination/Date Given: No Hx Pneumococcal Vaccination/Date Given: No Immunizations Up to Date: Yes Travel Risk - International Travel Have you traveled outside of the country in past 3 weeks: No - Coronavirus Screening Are you exhibiting any of the following symptoms?: No Close contact with a COVID-19 positive Pt in past 14-21 Days: No - Vaccine Status Have you recieved a Covid-19 vaccination: No - Review of Systems Constitutional: No Symptoms Eyes: No Symptoms Ears, Nose, & Throat: No Symptoms Respiratory: Dyspnea Cardiac: Chest Pain Abdominal/Gastrointestinal: No Symptoms Genitourinary Symptoms: No Symptoms Musculoskeletal: No Symptoms Skin: No Symptoms Neurological: No Symptoms Psychological: No Symptoms Endocrine: No Symptoms Hematologic/Lymphatic: No Symptoms Immunological/Allergic: No Symptoms - Past Medical History Pertinent Past Medical History: Yes Neurological History: No Pertinent History ENT History: No Pertinent History Cardiac History: High Cholesterol, Hypertension, Other Respiratory History: No Pertinent History Endocrine Medical History: Other Musculoskeletal History: Osteoarthritis GI Medical History: Colitis, GERD, Hepatitis History: No Pertinent History Psycho-Social History: Anxiety, Depression Male Reproductive Disorders: No Pertinent History Other Medical History: Stenosis of the heart,states hes hepatitis treatment and is hep free - Past Surgical History Past Surgical History: Yes Neuro Surgical History: No Pertinent History Cardiac: Cardiac Catheterization Respiratory: No Pertinent History Gastrointestinal: Appendectomy Genitourinary: No Pertinent History Musculoskeletal: Orthopedic Surgery Male Surgical History: No Pertinent History Other Surgical History: TONSILS. steroid back injections-. 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 - Social History Smoking Status: Current every day smoker How long have you smoked: 35 yrs Exposure to second hand smoke: Yes Alcohol Use: Socially Drug Use: none Patient Lives Alone: No Significant Family History: no pertinent family hx - Nursing Vital Signs Nursing Vital Signs: Initial Vital Signs Temperature 98.0 F 11/03/21 19:08 Pulse Rate 65 11/03/21 19:08 Respiratory Rate 16 11/03/21 19:08 Blood Pressure 125/76 11/03/21 19:08 O2 Sat by Pulse Oximetry 100 11/03/21 19:08 Pain Scale Pain Intensity 4 - Physical Exam General Appearance: no apparent distress, alert Eye Exam: PERRL/EOMI Ears, Nose, Throat Exam: normal ENT inspection, pharynx normal Neck Exam: normal inspection, supple, full range of motion Respiratory Exam: normal breath sounds, lungs clear Cardiovascular Exam: regular rate/rhythm, normal heart sounds Gastrointestinal/Abdomen Exam: soft, normal bowel sounds, No tenderness Back Exam: normal inspection, normal range of motion Extremity Exam: normal inspection, normal range of motion Neurologic Exam: alert, oriented x 3, cooperative Skin Exam: normal color SpO2 Interpretation: normal SpO2: 100 O2 Delivery: Room Air - Course EKG Interpreted by Me: RATE (66), Sinus Rhythm, NORMAL AXIS, Q-wave Ordered Tests: Active Orders 24 hr Category Date Time Status AMA [Release AMA] OM.NOW Care 11/03/21 21:46 Completed Assistant Merchandise Manager STAT Care 11/03/21 19:37 Completed EKG-ER Only STAT Care 11/03/21 19:36 Completed IV Insertion STAT Care 11/03/21 19:36 Completed CHEST 1 VIEW (PORTABLE) Stat Exams 11/03/21 19:48 Taken CBC W DIFF Stat Lab 11/03/21 19:45 Completed CMP Stat Lab 11/03/21 19:45 Completed D-DIMER QUANTITATIVE Stat Lab 11/03/21 19:45 Completed NT PRO BNP Stat Lab 11/03/21 19:45 Completed TROPONIN Q3H Lab 11/03/21 19:59 Completed Transfer Order Routine Transfer 11/03/21 Ordered Medication Summary Discontinued Medications Generic Name Dose Route Start Last Admin Trade Name Sawq PRN Reason Stop Dose Admin Aspirin 243 mg 11/03/21 19:36 11/03/21 19:48 Aspirin 81 Mg Tab.Chew PO 11/03/21 19:37 243 mg STAT ONE Administration Aspirin Confirm 11/03/21 19:46 Aspirin 81 Mg Tab.Chew Administered 11/03/21 19:47 Dose 243 mg .ROUTE .STK-MED ONE Morphine Sulfate 4 mg 11/03/21 19:36 11/03/21 19:49 Morphine Sulfate 4 Mg/Ml Injection IV 11/03/21 19:37 4 mg STAT ONE Administration Morphine Sulfate Confirm 11/03/21 19:46 Morphine Sulfate 4 Mg/Ml Injection Administered 11/03/21 19:47 Dose 4 mg .ROUTE .STK-MED ONE Nitroglycerin Confirm 11/03/21 21:00 Nitroglycerin 1 Gm Packet Administered 11/03/21 21:01 Dose 1 gm .ROUTE .STK-MED ONE Nitroglycerin 1 gm 11/03/21 21:02 11/03/21 21:03 Nitroglycerin 1 Gm Packet TOP 11/03/21 21:03 1 gm STAT ONE Administration Ondansetron HCl 4 mg 11/03/21 19:36 11/03/21 19:51 Ondansetron Hcl 4 Mg/2 Ml Vial IV 11/03/21 19:37 4 mg STAT ONE Administration Ondansetron HCl Confirm 11/03/21 19:46 Ondansetron Hcl 4 Mg/2 Ml Vial Administered 11/03/21 19:47 Dose 4 mg .ROUTE .STK-MED ONE Lab/Rad Data: Laboratory Result Diagrams 11/03/21 19:45 11/03/21 19:45 Laboratory Results 11/03/21 11/03/21 11/03/21 Range/Units 19:59 19:45 19:45 WBC (4.0-10.5) x10^3/uL RBC (4.1-5.6) x10^6/uL Hgb (12.5-18.0) g/dL Hct (42-50) % MCV (78-100) fL MCH (26-32) pg MCHC (32-36) g/dL RDW (11.5-14.0) % Plt Count (150-450) x10^3/uL MPV (7.5-11.0) fL Gran % (36.0-66.0) % Immature Gran % (Auto) (0.00-0.4) % Nucleat RBC Rel Count (0.00-0.1) % Eos # (Auto) (0-0.5) x10^3/uL Immature Gran # (Auto) (0.00-0.03) x10^3u/L Absolute Lymphs (auto) (1.0-4.6) x10^3/uL Absolute Monos (auto) (0.0-1.3) x10^3/uL Absolute Nucleated RBC (0.00-0.01) x10^3u/L Lymphocytes % (24.0-44.0) % Monocytes % (0.0-12.0) % Eosinophils % (0.00-5.0) % Basophils % (0.0-0.4) % Absolute Granulocytes (1.4-6.9) x10^3/uL Basophils # (0-0.4) x10^3/uL D-Dimer < 0.19 (0.0-0.50) mg/L Sodium 140 (137-145) mmol/L Potassium 4.0 (3.5-5.1) mmol/L Chloride 108 H (98-107) mmol/L Carbon Dioxide 22 (22-30) mmol/L Anion Gap 14.4 (5-15) MEQ/L BUN 11 (9-20) mg/dL Creatinine 0.76 (0.66-1.25) mg/dL Estimated GFR > 60.0 ML/MIN Glucose 120 H (74-106) mg/dL Calcium 8.9 (8.4-10.2) mg/dL Total Bilirubin 0.20 (0.2-1.3) mg/dL AST 24 (17-59) U/L ALT 13 (0-50) U/L Alkaline Phosphatase 58 (38-126) U/L Troponin I < 0.012 (0.000-0.034) ng/mL NT-Pro-B Natriuret Pep 49.1 (0-900) pg/mL Serum Total Protein 6.8 (6.3-8.2) g/dL Albumin 4.3 (3.5-5.0) g/dL 11/03/21 Range/Units 19:45 WBC 6.9 (4.0-10.5) x10^3/uL RBC 3.78 L (4.1-5.6) x10^6/uL Hgb 11.9 L (12.5-18.0) g/dL Hct 35.3 L (42-50) % MCV 93.4 (78-100) fL MCH 31.5 (26-32) pg MCHC 33.7 (32-36) g/dL RDW 12.7 (11.5-14.0) % Plt Count 221 (150-450) x10^3/uL MPV 10.5 (7.5-11.0) fL Gran % 63.7 (36.0-66.0) % Immature Gran % (Auto) 0.3 (0.00-0.4) % Nucleat RBC Rel Count 0.0 (0.00-0.1) % Eos # (Auto) 0.12 (0-0.5) x10^3/uL Immature Gran # (Auto) 0.02 (0.00-0.03) x10^3u/L Absolute Lymphs (auto) 1.86 (1.0-4.6) x10^3/uL Absolute Monos (auto) 0.46 (0.0-1.3) x10^3/uL Absolute Nucleated RBC 0.00 (0.00-0.01) x10^3u/L Lymphocytes % 27.0 (24.0-44.0) % Monocytes % 6.7 (0.0-12.0) % Eosinophils % 1.7 (0.00-5.0) % Basophils % 0.6 (0.0-0.4) % Absolute Granulocytes 4.40 (1.4-6.9) x10^3/uL Basophils # 0.04 (0-0.4) x10^3/uL D-Dimer (0.0-0.50) mg/L Sodium (137-145) mmol/L Potassium (3.5-5.1) mmol/L Chloride (98-107) mmol/L Carbon Dioxide (22-30) mmol/L Anion Gap (5-15) MEQ/L BUN (9-20) mg/dL Creatinine (0.66-1.25) mg/dL Estimated GFR ML/MIN Glucose (74-106) mg/dL Calcium (8.4-10.2) mg/dL Total Bilirubin (0.2-1.3) mg/dL AST (17-59) U/L ALT (0-50) U/L Alkaline Phosphatase (38-126) U/L Troponin I (0.000-0.034) ng/mL NT-Pro-B Natriuret Pep (0-900) pg/mL Serum Total Protein (6.3-8.2) g/dL Albumin (3.5-5.0) g/dL - Progress Progress: improved Air Movement: fair Progress Note: 11/03/21 21:07 51-year-old is evaluated for left-sided chest pain. EKG showed sinus rhythm w ith no ST elevation then does have anteroseptal Q waves. Given aspirin, morphine, on reevaluation still having discomfort and placed on Nitropaste. Chest x-ray reviewed by me did not reveal any acute cardiopulmonary findings and does have old changes. Official report is pending. Initial troponin and D- dimers are negative. Discussed with Dr. Mullen and patient is being admitted for observation to rule out ACS. 11/03/21 21:41 Patient later decided not to stay in the hospital as his pain is better after placing Nitropaste. I have discussed with patient in length about risk of leaving without full work-up which would not only delay the care but worsening of morbidity including acute myocardial infarction leading to but he still wants to leave. Patient states "my is here and I have to go". Did not want to stay even for second troponin in the ER. He is not confused or altered at all. He signed paper work for leaving AGAINST MEDICAL ADVICE and left hospital in a stable condition. Blood Culture(s) Obtained: No Antibiotics given: No Discussed with : Elias Will see patient in: hospital (observation) Counseled pt/family regarding: lab results, diagnosis, rad results - Departure Departure Disposition: AMA Clinical Impression: Chest pain Qualifiers: Chest pain type: precordial pain Qualified Code(s): R07.2 - Precordial pain Condition: Stable Critical Care Time: No Referrals: HANNA CAR MD [ACTIVE STAFF] - Follow up/PCP as directed (1-2 days for reevaluation) ANNE SALINAS [CONSULTING PHYSICIAN] - Follow up/PCP as directed (Call for appointment for reevaluation) Instructions: Angina (DC), Chest Pain (DC) Additional Instructions: Follow-up with primary care and cardiology for reevaluation. Return to ER for worsening chest pain or if having palpitation/shortness of breath etc.
[2021-11-03] MEDS ORDERED: Zofran 4 MG/2 ML VIAL ONE (19:46)
[2021-11-03] MEDS ORDERED: BABY ASPIRIN 81 MG CHEW ONE (19:46)
[2021-11-03] MEDS ORDERED: MORPHINE SULFATE 4 MG INJ ONE (19:46)
[2021-11-03 19:53] LABS: Basophil (Absolute #) 0.04 x10^3/uL (0-0.4); Eosinophil % 1.7 % (0.00-5.0); Eosinophil (Absolute #) 0.12 x10^3/uL (0-0.5); Hematocrit 35.3 % (42-50); Hemoglobin 11.9 g/dL (12.5-18.0); Lymphocyte (Absolute #) 1.86 x10^3/uL (1.0-4.6); Mean Cell Volume 93.4 fL (78-100); Mean Corpuscular Hemoglobin 31.5 pg (26-32); Mean Corpuscular Hgb Concent. 33.7 g/dL (32-36); Mean Platelet Volume 10.5 fL (7.5-11.0); Monocyte (Absolute #) 0.46 x10^3/uL (0.0-1.3); Monocytes % 6.7 % (0.0-12.0); Neutrophil % 63.7 % (36.0-66.0); Platelet Count 221 x10^3/uL (150-450); Red Blood Count 3.78 x10^6/uL (4.1-5.6); Red Cell Distribution Width 12.7 % (11.5-14.0); White Blood Count 6.9 x10^3/uL (4.0-10.5)
[2021-11-03 20:09] LABS: ALBUMIN 4.3 g/dL (3.5-5.0); ALKALINE PHOSPHATASE 58 U/L (38-126); ANION GAP 14.4 MEQ/L (5-15); BLOOD UREA NITROGEN 11 mg/dL (9-20); CHLORIDE 108 mmol/L (98-107); Calcium 8.9 mg/dL (8.4-10.2); Carbon Dioxide 22 mmol/L (22-30); Creatinine 1 0.76 mg/dL (0.66-1.25); EST GLOMERULAR FILTRATION RATE > 60.0 ML/MIN; Glucose 120 mg/dL (74-106); NT PRO BNP 49.1 pg/mL (0-900); SGOT/AST 24 U/L (17-59); SGPT/ALT 13 U/L (0-50); SODIUM 140 mmol/L (137-145); Total Protein 6.8 g/dL (6.3-8.2)
[2021-11-03] MEDS ORDERED: NITRO-BID 2% UD PACKETS ONE (21:00)
[2021-11-03] MEDS ORDERED: NITRO-BID 2% UD PACKETS TOP ONE (21:02)
[2021-11-03 21:08] VITALS: BP 132/83; PULSE 60
[2021-11-03 21:09] VITALS: O2SAT 100
--- NOTE | 2021-11-04 08:49 | XRAY ---
Indication: Chest pain. Comparison: January 29, 2019. Portable chest unchanged again hyperinflated and clear with chronic left costophrenic angle and old granulomatous disease. Heart not enlarged. Bony thorax intact again with spinal stimulator leads terminating T7. No new/acute findings.
== END 2021-11-03 21:51 | disposition left against medical advice (07) ==
LOC: ED 19:07
DX: R07.2 Precordial pain (principal); E78.5 Hyperlipidemia, unspecified; I10 Essential (primary) hypertension; Z72.0 Tobacco use; Z79.899 Other long term (current) drug therapy; Z28.310 Unvaccinated for COVID-19
CPT/HCPCS: 36000; 36415; 71045; 80053; 83880; 84484; 85025; 85379; 93005; 93041; 96374; 96375; 99284; J2270; J2405; A9270-GY